=== PATIENT | female | born 1940 | race Caucasian/White ===

== ENCOUNTER → 2016-11-13 | Outpatient (CLI) | payer MEDICARE, BC ==
[~2016-11-13] MED LIST: ADVA250A INH; ADVAI100I PO; ALEV220T14 PO; AMLO5 PO; AMLO5TAB96 PO; APIX2.5T PO; ASPI81CH37 CHEW; CALC750C21 CHEW; CEPH-460 PO; CHOL5000 PO; COMBAER INH; CYMB30CA PO; ENOX30P SQ; GABA100C4 PO; GUAI600 PO; HYDR-3288 PO; IPRAAER INH; LACTTAB8 PO; LEVA500T20 PO; MUCI30TA2 PO; MUCI600T PO; NAPR220T95 PO; NORC7.5T PO; ROLACHW21 CHEW; VITA200017 PO; Z.0.COMMODE-3:1; Z.0.WALKERFRONT
[2016-11-13 10:14] LABS: BLOOD GAS BASE EXCESS -1.8 mmol/L (-2-2); BLOOD GAS CARBOXYHEMOGLOBIN 1.5 % (0-4); BLOOD GAS HCO3 22 mmol/L (22-26); BLOOD GAS O2 HGB SATURATION 95 % (90-100); BLOOD GAS OXYGEN CONTENT 21.2 Vol % (12.0-20.0); BLOOD GAS PCO2 38 mmHg (38-42); BLOOD GAS PO2 87 mmHg (61-120); CRITICAL VALUE NO; DRAW SITE RT RADIAL; FIO2 21 %; NUMBER OF ARTERIAL PUNCTURES 1; STAT NO; TEMP CORR TO 98.6; ULNAR PULSE PRESENT
--- NOTE | 2016-11-14 08:52 | RSPPFT ---
DATE OF PROCEDURE: 11/13/16 COMMENTS: Spirometry with FVC of 1.8 predicted 2.8, FEV1 of 1.1 predicted 1.9, FEV1/FVC ratio at 63% predicted 69%. There is no significant change post-bronchodilator acutely. Residual volume is increased to 3.2 predicted 2.1 implying air trapping. DLCO is 72% of predicted. IMPRESSION: On the basis of the above, patient has an obstructive lung defect and no response to acutely inhaled bronchodilator.
== END ==
LOC: HRSP 07:52
PROVIDERS: ATTEND Internal Medicine
DX: J40 Bronchitis, not specified as acute or chronic (principal); J47.9 Bronchiectasis, uncomplicated
CPT/HCPCS: 36600; 82805; 94060; 94726; 94729

== ENCOUNTER 2017-01-31 10:01 | Inpatient (IN) | payer MEDICARE, BC ==
[~2017-01-31] VITALS: Ht 166.4 cm; Wt 85.2 kg
[2017-02-04] MEDS ORDERED: ADVA250A INH (09:35)
[2017-02-04] MEDS ORDERED: IPRAAER INH (09:35)
[2017-02-04] MEDS ORDERED: MUCI600T PO (09:35)
[2017-02-04] MEDS ORDERED: CALC750C21 CHEW (09:35)
[2017-02-04] MEDS ORDERED: CHOL5000 PO (09:35)
[2017-02-04] MEDS ORDERED: GABA100C4 PO (09:35)
[2017-02-04] MEDS ORDERED: NAPR220T95 PO (09:35)
[2017-02-04] MEDS ORDERED: CYMB30CA PO (09:35)
[2017-02-04] MEDS ORDERED: AMLO5 PO (09:35)
[2017-02-25] VITALS (7 sets, daily range): BP systolic 107–148; BP diastolic 54–65; PULSE 73–81; RESP 15–17; TEMP 95.2–98.7; O2SAT 96–99
[2017-02-25] MEDS ORDERED: METOPROLOL TARTRATE 25 MG TAB PO PRN (05:45)
[2017-02-25] MEDS ORDERED: LACTATED RINGER'S 1000 ML IV PRN (05:45)
[2017-02-25] MEDS ORDERED: INSULIN HUMAN REGULAR 1,000 UNITS/10 ML VIAL SQ PRN (05:45)
[2017-02-25] MEDS ORDERED: DEXAMETHASONE SOD PHOS 20 MG/5 ML VIAL IV PRN (05:45)
[2017-02-25] MEDS ORDERED: TRANEXAMIC ACID INJ 1,135 MG in SODIUM CHLORIDE 0.9% INJ 100 ML IV SCH (05:45)
[2017-02-25] MEDS ORDERED: POVIDONE IODINE 5% (ANTISEPSIS KIT) 4 APPLICATIONS EACH NARE PRN (05:45)
[2017-02-25] MEDS ORDERED: SODIUM CHLORID 0.9% 500 ML IV PRN (05:45)
[2017-02-25] MEDS ORDERED: POVIDONE IODINE 7.5% SCRUB 118 ML BOTTLE TOPICAL SCH (05:45)
[2017-02-25] MEDS ORDERED: CHLORHEXIDINE GLUCONATE 4% SOLN 120 ML BTL TOPICAL SCH (05:45)
[2017-02-25] MEDS ORDERED: EXPAREL PERI-ARTICULAR INJECTION (TOTAL VOL. 60 ML) P-ARTICULR SCH ×2 (05:45)
[2017-02-25] MEDS ORDERED: CHLORHEXIDINE GLUCONATE 2 % 1 PACK (2 CLOTHS) TOPICAL PRN (05:45)
[2017-02-25] MEDS ORDERED: ceFAZolin 2 GM PREMIX 50 ML IV SCH (05:45)
[2017-02-25] MEDS ORDERED: TRANEXAMIC PERI-ARTICULAR 3,000 MG/NS 100 ML P-ARTICULR SCH ×2 (05:45)
[2017-02-25] MEDS ORDERED: VANCOMYCIN 1000 MG/NS 250 ML (for <70 kg) IV SCH ×2 (05:45)
[2017-02-25] MEDS ORDERED: ALEV220T14 PO (05:51)
[2017-02-25] MEDS ORDERED: MUCI30TA2 PO (05:51)
[2017-02-25] MEDS ORDERED: GENTAMICIN SULFATE 80 MG/2 ML VIAL ONE (06:10)
[2017-02-25] MEDS ORDERED: HYDR-3288 PO (06:36)
[2017-02-25] MEDS ORDERED: ENOX30P SQ (06:36)
[2017-02-25] MEDS ORDERED: ASPI81CH37 CHEW (06:37)
[2017-02-25] MEDS ORDERED: fentaNYL CITRATE 250 MCG/5 ML AMP ONE (06:39)
[2017-02-25] MEDS ORDERED: FAMOTIDINE 20 MG/2 ML VIAL ONE (06:39)
[2017-02-25] MEDS ORDERED: ACETAMINOPHEN 1000 MG/100 ML VIAL IV ONE (06:39)
[2017-02-25] MEDS ORDERED: MIDAZOLAM HCL 2 MG/2 ML VIAL ONE (06:39)
[2017-02-25] MEDS ORDERED: MORPHINE SULFATE 4 MG/ML INJ IV PUSH PRN (06:45)
[2017-02-25] MEDS ORDERED: ACETAMINOPHEN/HYDROcodone 325 MG/7.5 MG TAB PO PRN (06:45)
[2017-02-25] MEDS ORDERED: ZOLPIDEM TARTRATE 5 MG TAB PO PRN (06:45)
[2017-02-25] MEDS ORDERED: diphenhydrAMINE HCL 50 MG/ML VIAL IV PRN (06:45)
[2017-02-25] MEDS ORDERED: SODIUM CHLORIDE 0.9% FLUSH 5 ML FLUSH IVF PRN (06:45)
[2017-02-25] MEDS ORDERED: ONDANSETRON HCL 4 MG/2 ML VIAL IVP PRN (06:45)
[2017-02-25] MEDS ORDERED: BISACODYL 10 MG SUPP RECTAL PRN (06:45)
[2017-02-25] MEDS ORDERED: Post-op Orders (for Pharmacy) MISC XX ONE (06:45)
[2017-02-25] MEDS ORDERED: NALOXONE HCL 0.4 MG/ML AMP IV PRN (06:45)
[2017-02-25] MEDS ORDERED: DO NOT ADM ANY ANTICOAGULANT DRUGS PRN (08:49)
[2017-02-25] MEDS ORDERED: *morphine SULFATE 8 MG/ML PERIprocedure ONLY ONE ×2 (08:57→09:08)
[2017-02-25] MEDS: GABAPENTIN 100 MG CAP PO SCH ×2 (09:00→19:59)
[2017-02-25] MEDS: BUDESONIDE-FORMOTEROL 160/4.5 MCG INHALER INH SCH ×2 (09:00→19:59)
[2017-02-25] MEDS: SODIUM CHLORIDE 0.9% FLUSH 5 ML FLUSH IVF SCH ×2 (09:00→20:00)
[2017-02-25] MEDS: amLODIPine BESYLATE 5 MG TAB PO SCH (09:00)
[2017-02-25] MEDS ORDERED: *HYDROmorphone PF 1 MG VIAL PERIprocedural Use ONLY ONE ×2 (09:16→09:35)
[2017-02-25] MEDS ORDERED: *RESP: ALBUTEROL 2.5 MG/3 ML NEB (PRN) PERIprocedural Use ONLY NEB ONE (09:45)
[2017-02-25] MEDS: SODIUM CHLOR 0.9% 1000 ML INJ 1,000 ML IV SCH ×3 (09:55→23:21)
--- NOTE | 2017-02-25 10:01 | RADRPT ---
EXAM DATE/TIME: 02/25/2017 09:11 [facility] COMPARISON: No previous studies available for comparison. INDICATIONS : Post op left hip surgery. MEDICAL HISTORY : None. SURGICAL HISTORY : right hip surgery 03/2016 ENCOUNTER: Initial ACUITY: 1 day PAIN SCORE: 10/10 LOCATION: Left hip and pelvis FINDINGS: The patient is status post a total hip arthroplasty with a bipolar prosthesis. Prosthesis is well-sea lexie. Alignment is anatomic. A fracture is not appreciated. Previous right hip arthroplasty and spina l fusion is noted. CONCLUSION: Anatomic alignment. Wilfredo James MD FACR on February 25, 2017 at 9:58 Board Certified Radiologist. This report was verified electronically.
[2017-02-25] MEDS ORDERED: LACTATED RINGER'S 1000 ML INJ 1,000 ML IV ONE (12:00)
[2017-02-25] MEDS ORDERED: PROPOFOL 200 MG/20 ML AMP IV ONE (12:00)
[2017-02-25] MEDS ORDERED: NEOSTIGMINE 3 MG/3 ML SYR IV ONE (12:00)
[2017-02-25] MEDS ORDERED: ONDANSETRON HCL 4 MG/2 ML VIAL IV PUSH ONE (12:00)
--- NOTE | 2017-02-25 12:12 | MP ---
cc: MICHEAL BRONSON M.D. DATE OF SURGERY: 02/25/2017 PREOPERATIVE DIAGNOSIS Left hip osteoarthritis. POSTOPERATIVE DIAGNOSIS Left hip osteoarthritis. PROCEDURE Left total hip arthroplasty. SURGEON Dr. Micheal Bronson. [employer] [facility] ANESTHESIA General. ESTIMATED BLOOD LOSS 100 ccs. COMPLICATIONS None. IMPLANTS USED DePuy Corail size 14 Press-Fit high offset femoral stem, size 52 solid pinnacle Gription cup, size 36 mm highly cross-linked polyethylene neutral liner, size 36 mm cobalt chrome head, +1 neck. JUSTIFICATION This patient is a 76-year-old female with history of severe end-stage osteoarthritis involving the left hip. She has severe disabling pain with standing, walking, ambulation, weight-bear Activities, even severe pain at rest. She has failed greater than 3 months of nonoperative conservative treatment to include medications, therapy, ambulatory assisted aids, home exercise program, activity modification. The patient is not overweight. X-ray of left hip revealed severe end-stage osteoarthritis with [id number] joint space narrowing, subchondral sclerosis, subchondral cyst, osteophyte formation and subluxation. The patient was counseled as to the risks, benefits and alternatives to a total hip arthroplasty. The risks were discussed which include but not limited to anesthesia, bleeding, infection, damage to nerves, blood vessels, pain, stiffness, failure of components, blood clots, pulmonary embolism, leg length discrepancy, dislocation, pulmonary embolism and even . The patient's pain is severe, she favored the benefits over the risks and did wish to proceed with surgery. PROCEDURE IN DETAIL A written consent was obtained. The patient was identified by name, taken to the operating room and placed supine on the operating table. General anesthesia was administered as well as 2 grams of IV Ancef and 1 gram of IV vancomycin. The left and right feet were placed in padded traction boots. The left hip and left lower extremity was then prepped and draped using isopropyl alcohol, Hibiclens solution and Chloraprep solution. After time-out was performed a longitudinal incision was made over the anterolateral aspect of the left hip. The fascial layer was incised. Dissection was carried over tensor fascia arley beneath rectus femoris allowing exposure of the anterior capsule. Capsulotomy incision was performed. An oscillating saw was used to perform a femoral neck cut. The osteophytic femoral head and neck component was removed. A 10 blade scalpel was used to excise the labrum. Sequential reaming began at size 45 and was carried through to size 52. Subsequently the Gription size 52 cup was implanted approximately 45 degrees of abduction and 10 degrees of anteversion. There is good purchase and fixation after insertion of the cup. A screw hole eliminator was placed followed by the neutral polyethylene liner. The liner was impacted in place and tested for stability. Attention was turned to the femur where the leg was externally rotated, extended and adducted, the capsule was released on the undersurface of the greater trochanter to allow for elevation and lateralization of the femur. Box cutting osteotome was used to gain entrance into the intramedullary canal of the femur. This was followed by canal finder and sequential broaching up to size 14. Trial head and neck combinations were evaluated and final components implanted, with the current implanted components, the leg could achieve external rotation of 70 degrees and extension all the way down to the ground without evidence of anterior instability. Fluoroscopic imaging showed appropriate implantation of components. The surgical wounds were thoroughly irrigated with sterile saline pulse lavage antibiotic impregnated solution. The fascia layer was closed with #1 Vicryl suture. The subcutaneous layer closed with 2-0 Vicryl suture, and skin was closed with Dermabond. Sterile dressing was applied. The patient tolerated the procedure well and had no intraoperative complications noted. Virgilio Blackman, physician school psychologist assistant certified was present during the entire procedure to include patient positioning, the procedure itself. The medical necessity of physician school psychologist assistant was indicated in this case due to the complexity of the procedure, he assisted with appropriate manipulation of the leg and also retraction of muscle, tendon, bone, neurovascular structures. He assisted with both preparation of bone and implantation of the prosthetic replacement. MD BUZZ Colón/JIM /8:38 AM /11:52 AM
--- NOTE | 2017-02-25 12:51 | RADRPT ---
EXAM DATE/TIME: 02/25/2017 07:22 [facility] COMPARISON: No previous studies available for comparison. INDICATIONS : Left anterior hip replacement. MEDICAL HISTORY : Hypertension. Chronic obstructive pulmonary disease. Arthritis. Asthma. SURGICAL HISTORY : Hysterectomy. ENCOUNTER: Subsequent ACUITY: 1 day PAIN SCORE: Non-responsive. LOCATION: Left hip. FINDINGS: The patient is status post a total hip arthroplasty with a bipolar prosthesis. Prosthesis is well-sea lexie. Alignment is anatomic. A fracture is not appreciated. CONCLUSION: Anatomic alignment. Wilfredo James MD FACR Board Certified Radiologist. This report was verified electronically.
--- NOTE | 2017-02-25 13:37 | PD.CONS ---
HPI Service [facility] Consult Requested By Dr. Daniels Reason for Consult Medical management Primary Care Physician Diane Chand MD Diagnoses: History of Present Illness Written by IGNACIO Bernardo acting as scribe for [Antony] on 02/25/17 at 12 :45. 76 y/o female with a history of htn and osteoarthritis underwent a left total hip arthroplasty with Dr. Daniels on 02/25/17. [facility] was consulted for medical management of chronic medical conditions. Patient is seen and examined while sitting up in the chair. She complains of left hip pain, 6/10, sore and tender to touch, aggravated by movement, but the pain medication does help. No associated symptoms. She denies any chest pain, sob, fever or chills. Review of Systems Constitutional: DENIES: Fever, Chills Respiratory: DENIES: Cough, Shortness of breath Cardiovascular: DENIES: Chest pain, Lower Extremity Edema Gastrointestinal: DENIES: Abdominal pain, Constipation, Diarrhea, Nausea, Vomiting Genitourinary: DENIES: Hematuria, Dysuria Musculoskeletal: COMPLAINS OF: Joint pain, DENIES: Back pain, Neck pain Integumentary: DENIES: Rash Neurologic: DENIES: Headache Past Family Social History Allergies: Coded Allergies: No Known Allergies (Unverified , 02/25/17) Past Medical History HTN Osteoarthritis Melanoma Past Surgical History Left elbow repair Right total knee replacement lumbar spine surgery hysterectomy appendectomy Reported Medications Reported Meds & Active Scripts Active Aspirin Low Dose (Aspirin) 81 Mg Chew 81 Mg CHEW BID Lovenox Inj (Enoxaparin Sodium) 30 Mg/0.3 Ml Syr 30 Mg SQ DAILY [place] (Hydrocodone-Acetaminophen) 7.5-325 mg Tab 1-2 Tab PO Q6H PRN Reported Aleve Arthritis (Naproxen Sodium) 220 Mg Tab 440 Mg PO BID Mucinex DM (Dextromethorphan-Guaifenesin) 30-600 Mg Tab 1 Tab PO BID PRN Combivent Respimat Inh (Ipratropium-Albuterol Inh) 20-100 Retirement/Act Aero 1 Puff INH QID PRN Gabapentin 100 Mg Cap 100 Mg PO BID Advair Diskus Inh (Fluticasone-Salmeterol Inh) 250-50 Mcg/Blist Aer 1 Puff INH BID Rinse mouth after use. Cymbalta DR (Duloxetine HCl) 30 Mg Capdr 30 Mg PO HS Vitamin D3 (Cholecalciferol) 5,000 Unit Cap 5,000 Units PO DAILY Tums E-X 750 (Calcium Carbonate (Antacid)) 750 Mg Chew 750 Mg CHEW PRN Norvasc (Amlodipine Besylate) 5 Mg Tab 5 Mg PO DAILY Active Ordered Medications Current Medications Medications (Trade) Dose Ordered Sig/Clari Route Start Time Stop Time Status Last Admin (Betadine 7.5% Scrub) 1 applic ONCE TOPICAL 02/25/17 05:45 02/28/17 05:44 Chlorhexidine Gluconate 1 applic 1 applic ONCE TOPICAL 02/25/17 05:45 02/28/17 05:44 Tranexamic Acid 1135 mg/Sodium Chloride 111.35 ml @ 200 mls/ hr ONCE IV 02/25/17 05:45 02/25/17 16:00 02/25/17 07:11 Bupivacaine Liposome 20 ml/ Sodium Chloride 60 ml @ 120 mls/hr ONCE P-ARTICULR 02/25/17 05:45 02/25/17 16:00 02/25/17 07:58 Tranexamic Acid 3000 mg/Sodium Chloride 130 ml @ 260 mls/hr ONCE P-ARTICULR 02/25/17 05:45 02/25/17 16:00 02/25/17 07:58 Lactated Ringer's 1,000 ml @ 30 mls/hr Q24H PRN IV 02/25/17 05:45 02/28/17 05:44 02/25/17 05:45 (NS 500 ml Inj) 500 ml @ 30 mls/hr [id number] PRN IV 02/25/17 05:45 02/28/17 05:44 (Norvasc) 5 mg DAILY PO 02/25/17 09:00 (Cymbalta Dr) 30 mg HS PO 02/25/17 21:00 (Neurontin) 100 mg BID PO 02/25/17 09:00 Budesonide/ Formoterol Fumarate 2 puff 2 puff BID INH 02/25/17 09:00 (NS 1000 ml Inj) 1,000 ml @ 100 mls/hr Q10H IV 02/25/17 06:33 02/25/17 09:55 (NS Flush) 2 ml UNSCH PRN IVF 02/25/17 06:45 IV Flush 2 ml 2 ml BID IVF 02/25/17 09:00 (Ancef Inj/NS Inj) 100 ml @ 200 mls/hr Q6H IV 02/25/17 12:00 02/26/17 00:29 (Lovenox Inj) 30 mg Q24H SQ 02/25/17 21:00 (Morphine Inj) 3 mg Q3H PRN IV PUSH 02/25/17 06:45 ([place] 7.5-325 Mg) 1 tab Q4H PRN PO 02/25/17 06:45 ([place] 7.5-325 Mg) 2 tab Q4H PRN PO 02/25/17 06:45 (Theragran M Tab) 1 tab BID PO 02/26/17 21:00 04/27/17 20:59 (Zofran Inj) 4 mg Q6H PRN IVP 02/25/17 06:45 (Colace) 100 mg BID PO 02/26/17 21:00 (Ambien) 5 mg HS PRN PO 02/25/17 06:45 (Dulcolax Supp) 10 mg DAILY PRN RECTAL 02/25/17 06:45 (Milk Of Magnesia Liq) 30 ml DAILY PRN PO 02/25/17 06:45 (Narcan Inj) 0.4 mg UNSCH PRN IV 02/25/17 06:45 (Benadryl Inj) 25 mg Q6H PRN IV 02/25/17 06:45 Miscellaneous Information ALL NURSING DEPARTME... UNSCH PRN .XX 02/25/17 08:49 02/26/17 08:48 Family History mom: heart disease, chf Siblings: heart disease, and melanoma Social History Patient denies any tobacco, alcohol, or illicit drug use. Physical Exam Vital Signs Vital Signs Date Time Temp Pulse Resp B/P Pulse Ox O2 Delivery O2 Flow Rate FiO2 02/25/17 11:48 95.6 73 16 110/57 99 02/25/17 10:32 95.2 81 16 107/56 99 02/25/17 10:15 80 14 120/56 96 Nasal Cannula 2 02/25/17 10:00 97.9 74 14 108/55 96 Nasal Cannula 2 02/25/17 09:45 69 14 114/59 98 Aerosol Mask 6/12/17 09:30 75 16 115/57 99 Nasal Cannula 3 02/25/17 09:15 78 16 116/57 99 Nasal Cannula 3 02/25/17 09:00 77 14 145/63 100 Nasal Cannula 3 02/25/17 08:52 97.3 73 14 166/72 99 Nasal Cannula 3 02/25/17 05:52 98.7 74 16 148/65 97 Physical Exam GENERAL: This is a well-nourished, well-developed patient, in no apparent distress. SKIN: No rashes, ecchymoses or lesions. Cool and dry. HEAD: Atraumatic. Normocephalic. No temporal or scalp tenderness. EYES: Pupils equal round and reactive. Extraocular motions intact. ENT: Nose without bleeding, purulent drainage or septal hematoma. Airway patent. NECK: Trachea midline. No JVD or lymphadenopathy. CARDIOVASCULAR: Regular rate and rhythm without murmurs, gallops, or rubs. RESPIRATORY: Clear to auscultation. Breath sounds equal bilaterally. No wheezes , rales, or rhonchi. GASTROINTESTINAL: Abdomen soft, non-tender, nondistended. No hepato-splenomegaly , or palpable masses. No guarding. MUSCULOSKELETAL: Extremities without clubbing, cyanosis, or edema. left hip tenderness. No calf pain. NEUROLOGICAL: Awake and alert. Motor and sensory grossly within normal limits. Normal speech. Laboratory Laboratory Tests Test 02/25/17 05:57 Blood Type O POSITIVE Antibody Screen NEGATIVE Imaging Last Impressions Hip and Pelvis X-Ray 02/25/17 0633 Signed Impressions: Service Date/Time: Saturday, February 25, 2017 09:11 - CONCLUSION: Anatomic alignment. Wilfredo James MD FACR Hip X-Ray 02/25/17 0000 Signed Impressions: Service Date/Time: Saturday, February 25, 2017 07:22 - CONCLUSION: Anatomic alignment. Wilfredo James MD Assessment and Plan Problem List: (1) Primary localized osteoarthrosis, pelvic region and thigh ICD Code: M16.10 Status: Acute (2) HTN (hypertension) ICD Code: I10 Status: Acute Assessment and Plan 76 y/o female with a history of htn and osteoarthritis underwent a left total hip arthroplasty with Dr. Daniels on 02/25/17. [facility] was consulted for medical management of chronic medical conditions. HTN, chronic currently controlled -Cont home Norvasc -Vasotec if needed Osteoarthritis, s/p left total hip arthroplasty on 02/25/17 -Followed by Dr. Daniels -Pain management with [place] PO and Morphine IV -Cont home gabapentin DVT prophylaxis: Lovenox This note was transcribed by scribe [Maryann Erazo]. I, Dr. Jeronimo Hardy personally performed the history, physical exam, and medical decision making; and confirmed the accuracy of the information in the transcribed note. Authenticated by Dr. Jeronimo Hardy on 02/25/17 at 15:13. Discussed Condition With Patient and patient's Maryann Erazo Feb 25, 2017 1:37 pm Jeronimo Hardy MD Feb 25, 2017 3:14 pm
[2017-02-25] MEDS: ACETAMINOPHEN/HYDROcodone 325 MG/7.5 MG TAB PO PRN ×2 (15:59→20:00)
[2017-02-25] MEDS: DULoxetine HCl DR 30 MG CAP PO SCH (19:59)
[2017-02-25] MEDS: ENOXAPARIN SODIUM 30 MG/0.3 ML SYRINGE SQ SCH (21:20)
[2017-02-26] MEDS: ACETAMINOPHEN/HYDROcodone 325 MG/7.5 MG TAB PO PRN ×5 (00:04→20:58)
[2017-02-26 04:00] VITALS: BP 124/61; PULSE 76; RESP 17; TEMP 98.7; O2SAT 96
[2017-02-26 04:39] LABS: HEMATOCRIT 29.6 % (35.0-46.0); MEAN CELL VOLUME 88.8 FL (80.0-100.0); MEAN CORPUSCULAR HEMOGLOBIN 30.3 PG (27.0-34.0); MEAN CORPUSCULAR HGB CONC 34.1 % (32.0-36.0); PLATELET COUNT 170 TH/MM3 (150-450); RED BLOOD COUNT 3.34 MIL/MM3 (4.00-5.30); RED CELL DISTRIBUTION WIDTH 14.3 % (11.6-17.2); REVIEW FLAG FINAL; WHITE BLOOD COUNT 11.5 TH/MM3 (4.0-11.0)
[2017-02-26 04:58] LABS: BICARBONATE 25.9 MEQ/L (21.0-32.0); POTASSIUM 4.7 MEQ/L (3.5-5.1)
[2017-02-26 07:32] VITALS: BP 118/61; PULSE 80; RESP 16; TEMP 98.3; O2SAT 97
--- NOTE | 2017-02-26 08:40 | PD.ORT.PN ---
Subjective Post Op Day #: 1 Subjective Remarks doing well. pain tolerable. Objective Vitals Vital Signs Date Time Temp Pulse Resp B/P Pulse Ox O2 Delivery O2 Flow Rate FiO2 02/26/17 04:00 98.7 76 17 124/61 96 02/25/17 23:59 97.3 79 15 110/65 96 02/25/17 20:35 98 21 02/25/17 19:00 97.9 77 17 121/56 98 02/25/17 15:41 95.5 77 16 114/54 99 02/25/17 11:48 95.6 73 16 110/57 99 02/25/17 10:32 95.2 81 16 107/56 99 02/25/17 10:15 80 14 120/56 96 Nasal Cannula 2 02/25/17 10:00 97.9 74 14 108/55 96 Nasal Cannula 2 02/25/17 09:45 69 14 114/59 98 Aerosol Mask 02/25/17 09:30 75 16 115/57 99 Nasal Cannula 3 02/25/17 09:15 78 16 116/57 99 Nasal Cannula 3 02/25/17 09:00 77 14 145/63 100 Nasal Cannula 3 02/25/17 08:52 97.3 73 14 166/72 99 Nasal Cannula 3 I/O 02/25/17 02/25/17 02/25/17 02/26/17 02/26/17 02/26/17 07:00 15:00 23:00 07:00 15:00 23:00 Intake Total 2301 ml 732 ml 1440 ml Output Total 1275 ml 480 ml 240 ml Balance 1026 ml 252 ml 1200 ml Intake Oral 480 ml 480 ml 480 ml IV Total 721 ml 252 ml 960 ml Other 1100 ml Output Urine Total 1175 ml 480 ml 240 ml Estimated Blood Loss 100 ml # Voids 0 # Bowel Movements 0 0 0 Result Diagram: 02/26/17 0405 02/26/17404 Objective Remarks in bed, nad, eating dressing c/d/i thigh soft neg homans nvi Assessment & Plan Ortho Post Op Day #: 1 Problem List: Assessment and Plan s/p L LOUIE anterior approach wbat daily dressing changes lovenox d/c planning to snf 3008 signed rx in chart f/up dr. cifuentes 2 weeks Delgado Blackman Feb 26, 2017 08:40
--- NOTE | 2017-02-26 08:41 | HHI.DCPOC ---
Discharge Care Plan Diagnosis: (1) Primary localized osteoarthrosis, pelvic region and thigh Your Health Problems Are: Difficulty with ADL Goals to Promote Your Health * To prevent worsening of your condition and complications * To maintain your health at the optimal level Directions to Meet Your Goals Take your medications as prescribed Follow your dietary instruction Follow activity as directed Keep your appointments as scheduled Take your immunizations and boosters as scheduled If your symptoms worsen call your PCP, if no PCP go to Urgent Care Center or Emergency Room Smoking is Dangerous to Your Health. Avoid second hand smoke Call the 24-hour hour crisis hotline for domestic abuse at Delgado Blackman Feb 26, 2017 08:41
[2017-02-26] MEDS: SODIUM CHLORIDE 0.9% FLUSH 5 ML FLUSH IVF SCH ×2 (09:00→20:59)
[2017-02-26] MEDS: BUDESONIDE-FORMOTEROL 160/4.5 MCG INHALER INH SCH ×2 (09:39→20:59)
[2017-02-26] MEDS: GABAPENTIN 100 MG CAP PO SCH ×2 (09:40→20:59)
[2017-02-26] MEDS: amLODIPine BESYLATE 5 MG TAB PO SCH (09:40)
[2017-02-26] MEDS: MAGNESIUM HYDROXIDE SUSP 30 ML CUP PO PRN (09:42)
--- NOTE | 2017-02-26 10:08 | HHI.PR ---
Subjective Remarks Follow up left hip replacement, POD #2. Patient laying in bed. States her pain is a 6/10, and she just received pain medication. Denies any chest pain, sob, fever or chills. She states she has chosen to go to [facility] for rehab. No BM yet, milk of mag was given this am. Objective Vitals Vital Signs Date Time Temp Pulse Resp B/P Pulse Ox O2 Delivery O2 Flow Rate FiO2 02/26/17 07:32 98.3 80 16 118/61 97 02/26/17 04:00 98.7 76 17 124/61 96 02/25/17 23:59 97.3 79 15 110/65 96 02/25/17 20:35 98 21 02/25/17 19:00 97.9 77 17 121/56 98 02/25/17 15:41 95.5 77 16 114/54 99 02/25/17 11:48 95.6 73 16 110/57 99 02/25/17 10:32 95.2 81 16 107/56 99 02/25/17 10:15 80 14 120/56 96 Nasal Cannula 2 I/O 02/25/17 02/25/17 02/25/17 02/26/17 02/26/17 02/26/17 07:00 15:00 23:00 07:00 15:00 23:00 Intake Total 2301 ml 732 ml 1440 ml Output Total 1275 ml 480 ml 240 ml Balance 1026 ml 252 ml 1200 ml Intake Oral 480 ml 480 ml 480 ml IV Total 721 ml 252 ml 960 ml Other 1100 ml Output Urine Total 1175 ml 480 ml 240 ml Estimated Blood Loss 100 ml # Voids 0 # Bowel Movements 0 0 0 Result Diagram: 02/26/17 0405 02/26/17 0405 Objective Remarks GENERAL: Resting, in NAD SKIN: Warm and dry. HEAD: Atraumatic. Normocephalic. NECK: Trachea midline. No JVD. CARDIOVASCULAR: Regular rate and rhythm. RESPIRATORY: No accessory muscle use. Clear to auscultation. Breath sounds equal bilaterally. GASTROINTESTINAL: Abdomen soft, non-tender, nondistended. Hepatic and splenic margins not palpable. MUSCULOSKELETAL:Left hip tenderness. No obvious deformities. NEUROLOGICAL: Awake and alert. No obvious cranial nerve deficits. Motor grossly within normal limits.Normal speech. PSYCHIATRIC: Appropriate mood and affect; insight and judgment normal. Medications and IVs Current Medications Medications (Trade) Dose Ordered Sig/Clari Route Start Time Stop Time Status Last Admin (Betadine 7.5% Scrub) 1 applic ONCE TOPICAL 02/25/17 05:45 02/28/17 05:44 Chlorhexidine Gluconate 1 applic 1 applic ONCE TOPICAL 02/25/17 05:45 02/28/17 05:44 Lactated Ringer's 1,000 ml @ 30 mls/hr Q24H PRN IV 02/25/17 05:45 02/28/17 05:44 02/25/17 05:45 (NS 500 ml Inj) 500 ml @ 30 mls/hr [id number] PRN IV 02/25/17 05:45 02/28/17 05:44 (Norvasc) 5 mg DAILY PO 02/25/17 09:00 02/26/17 09:40 (Cymbalta Dr) 30 mg HS PO 02/25/17 21:00 02/25/17 19:59 (Neurontin) 100 mg BID PO 02/25/17 09:00 02/26/17 09:40 Budesonide/ Formoterol Fumarate 2 puff 2 puff BID INH 02/25/17 09:00 02/26/17 09:39 (NS 1000 ml Inj) 1,000 ml @ 100 mls/hr Q10H IV 02/25/17 06:33 02/25/17 23:21 (NS Flush) 2 ml UNSCH PRN IVF 02/25/17 06:45 (NS Flush) 2 ml BID IVF 02/25/17 09:00 02/26/17 09:00 (Lovenox Inj) 30 mg Q24H SQ 02/25/17 21:00 02/25/17 21:20 (Morphine Inj) 3 mg Q3H PRN IV PUSH 02/25/17 06:45 ([place] 7.5-325 Mg) 1 tab Q4H PRN PO 02/25/17 06:45 02/26/17 09:42 ([place] 7.5-325 Mg) 2 tab Q4H PRN PO 02/25/17 06:45 (Theragran M Tab) 1 tab BID PO 02/26/17 21:00 04/27/17 20:59 (Zofran Inj) 4 mg Q6H PRN IVP 02/25/17 06:45 (Colace) 100 mg BID PO 02/26/17 21:00 (Ambien) 5 mg HS PRN PO 02/25/17 06:45 (Dulcolax Supp) 10 mg DAILY PRN RECTAL 02/25/17 06:45 (Milk Of Magnesia Liq) 30 ml DAILY PRN PO 02/25/17 06:45 02/26/17 09:42 (Narcan Inj) 0.4 mg UNSCH PRN IV 02/25/17 06:45 (Benadryl Inj) 25 mg Q6H PRN IV 02/25/17 06:45 A/P Problem List: (1) Primary localized osteoarthrosis, pelvic region and thigh ICD Code: M16.10 Status: Acute (2) HTN (hypertension) ICD Code: I10 Status: Acute Assessment and Plan 76 y/o female with a history of htn and osteoarthritis underwent a left total hip arthroplasty with Dr. Daniels on 02/25/17. [facility] was consulted for medical management of chronic medical conditions. HTN, chronic currently controlled -Cont home Norvasc -Vasotec if needed Osteoarthritis, s/p left total hip arthroplasty on 02/25/17 -Followed by Dr. Daniels -Pain management with [place] PO and Morphine IV per ortho -Cont home gabapentin DVT prophylaxis: Lovenox Discharge Planning 1-2 days to [facility] for rehab Maryann Erazo Feb 26, 2017 10:08
[2017-02-26 10:10] VITALS: O2SAT 92
[2017-02-26] MEDS: SODIUM CHLOR 0.9% 1000 ML INJ 1,000 ML IV SCH ×2 (11:35→20:59)
[2017-02-26 11:49] VITALS: BP 115/53; PULSE 79; RESP 16; TEMP 98; O2SAT 97
[2017-02-26 16:04] VITALS: BP 112/57; PULSE 83; RESP 16; TEMP 98.4; O2SAT 96
[2017-02-26 20:00] VITALS: BP 120/65; PULSE 89; RESP 18; TEMP 98.7; O2SAT 95
[2017-02-26] MEDS ORDERED: CALCIUM CARBONATE 500 MG CHEWABLE TAB CHEW ONE (20:00)
[2017-02-26] MEDS: DOCUSATE SODIUM 100 MG CAP PO SCH (20:58)
[2017-02-26] MEDS: DULoxetine HCl DR 30 MG CAP PO SCH (20:58)
[2017-02-26] MEDS: MULTIVITAMINS/MINERALS THERAPEUTIC TAB PO SCH (20:58)
[2017-02-26] MEDS: ENOXAPARIN SODIUM 30 MG/0.3 ML SYRINGE SQ SCH (20:58)
[2017-02-27] VITALS: BP 135/60; PULSE 83; RESP 16; TEMP 98.9; O2SAT 95
[2017-02-27 04:00] VITALS: BP_SYST 128; BP_SYST 130; BP_DIAS 69; BP_DIAS 73; PULSE 83; PULSE 86; RESP 16; TEMP 97.2; TEMP 98.1; O2SAT 93; O2SAT 98
[2017-02-27] MEDS: ACETAMINOPHEN/HYDROcodone 325 MG/7.5 MG TAB PO PRN ×3 (05:03→18:23)
[2017-02-27 07:31] LABS: MEAN CELL VOLUME 89.5 FL (80.0-100.0); MEAN CORPUSCULAR HEMOGLOBIN 29.3 PG (27.0-34.0); MEAN CORPUSCULAR HGB CONC 32.8 % (32.0-36.0); PLATELET COUNT 146 TH/MM3 (150-450); RED BLOOD COUNT 3.35 MIL/MM3 (4.00-5.30); RED CELL DISTRIBUTION WIDTH 14.5 % (11.6-17.2); REVIEW FLAG FINAL; WHITE BLOOD COUNT 11.2 TH/MM3 (4.0-11.0)
--- NOTE | 2017-02-27 07:48 | PD.ORT.PN ---
Subjective Post Op Day #: 2 Subjective Remarks doing well. pain tolerable. walked a lot in PT and leg is sore. Objective Vitals Vital Signs Date Time Temp Pulse Resp B/P Pulse Ox O2 Delivery O2 Flow Rate FiO2 02/27/17 04:00 98.1 86 16 128/69 93 02/27/17 00:00 98.9 83 16 135/60 95 02/26/17 20:00 98.7 89 18 120/65 95 02/26/17 16:04 98.4 83 16 112/57 96 02/26/17 11:49 98.0 79 16 115/53 97 02/26/17 10:10 92 21 I/O 02/26/17 02/26/17 02/26/17 02/27/17 02/27/17 02/27/17 07:00 15:00 23:00 07:00 15:00 23:00 Intake Total 1440 ml 960 ml 780 ml 240 ml Output Total 240 ml Balance 1200 ml 960 ml 780 ml 240 ml Intake Oral 480 ml 960 ml 780 ml 240 ml IV Total 960 ml Output Urine Total 240 ml # Voids 2 1 1 # Bowel Movements 0 0 0 0 Result Diagram: 02/27/17 0635 02/26/17 0405 Objective Remarks in bed, nad incision no erythema, no drainage thigh soft neg homans nvi Assessment & Plan Ortho Post Op Day #: 2 Problem List: Assessment and Plan s/p L LOUIE anterior approach wbat daily dressing changes lovenox d/c planning to snf - likely 3007 signed rx in chart f/up dr. cifuentes 2 weeks Delgado Blackman Feb 27, 2017 07:48
[2017-02-27 08:00] VITALS: BP 136/62; PULSE 89; RESP 14; TEMP 97.7; O2SAT 93
[2017-02-27] MEDS: SODIUM CHLOR 0.9% 1000 ML INJ 1,000 ML IV SCH ×3 (08:33→20:41)
[2017-02-27] MEDS: DOCUSATE SODIUM 100 MG CAP PO SCH ×2 (08:41→20:39)
[2017-02-27] MEDS: amLODIPine BESYLATE 5 MG TAB PO SCH (08:41)
[2017-02-27] MEDS: GABAPENTIN 100 MG CAP PO SCH ×2 (08:41→20:39)
[2017-02-27] MEDS: MULTIVITAMINS/MINERALS THERAPEUTIC TAB PO SCH ×2 (08:41→20:40)
[2017-02-27] MEDS: MAGNESIUM HYDROXIDE SUSP 30 ML CUP PO PRN ×2 (08:42→20:39)
[2017-02-27] MEDS: BUDESONIDE-FORMOTEROL 160/4.5 MCG INHALER INH SCH ×2 (08:58→20:40)
[2017-02-27] MEDS: SODIUM CHLORIDE 0.9% FLUSH 5 ML FLUSH IVF SCH ×2 (09:00→20:40)
[2017-02-27 12:00] VITALS: BP 112/54; PULSE 86; RESP 14; TEMP 98.6; O2SAT 95
--- NOTE | 2017-02-27 14:16 | HHI.PR ---
Subjective Remarks Difficulty and pain with ambulation. We discussed the option for [facility]dc facility. Patient is interested in this option rather than a return to home. Hemoglobin is 9.8 today. Objective Vital Signs Date Time Temp Pulse Resp B/P Pulse Ox O2 Delivery O2 Flow Rate FiO2 02/27/17 08:00 97.7 89 14 136/62 93 02/27/17 04:00 98.1 86 16 128/69 93 02/27/17 00:00 98.9 83 16 135/60 95 02/26/17 20:00 98.7 89 18 120/65 95 02/26/17 16:04 98.4 83 16 112/57 96 I/O 02/26/17 02/26/17 02/26/17 02/27/17 02/27/17 02/27/17 07:00 15:00 23:00 07:00 15:00 23:00 Intake Total 1440 ml 960 ml 780 ml 240 ml Output Total 240 ml Balance 1200 ml 960 ml 780 ml 240 ml Intake Oral 480 ml 960 ml 780 ml 240 ml IV Total 960 ml Output Urine Total 240 ml # Voids 2 1 1 # Bowel Movements 0 0 0 0 Result Diagram: 02/27/17 0635 02/26/17 0405 Objective Remarks GENERAL: NAD, A&Ox3 HEAD: Normocephalic. NECK: Supple, trachea midline. No lymphadenopathy. EYES: No scleral icterus. No injection or drainage. CARDIOVASCULAR: Regular rate and rhythm without murmurs, gallops, or rubs. RESPIRATORY: Breath sounds equal bilaterally. No accessory muscle use. GASTROINTESTINAL: Abdomen soft, non-tender, nondistended. MUSCULOSKELETAL: No cyanosis, or edema. Limited range of motion of left hip, left hip bandage. SKIN: Warm and dry. NEURO: No focal neurological deficitis. Medications and IVs Administered Medications Medications (Trade) Dose Ordered Sig/Clari Route PRN Reason Start Time Stop Time Status Last Admin Dose Admin Lactated Ringer's (Lr 1000 ml Inj) 1,000 ml @ 30 mls/hr Q24H PRN IV SEE LABEL COMMENTS 02/25/17 05:45 02/28/17 05:44 02/25/17 05:45 Amlodipine Besylate (Norvasc) 5 mg DAILY PO 02/25/17 09:00 02/27/17 08:41 Duloxetine HCl (Cymbalta Dr) 30 mg HS PO 02/25/17 21:00 02/26/17 20:58 Gabapentin (Neurontin) 100 mg BID PO 02/25/17 09:00 02/27/17 08:41 Budesonide/ Formoterol Fumarate 2 puff 2 puff BID INH 02/25/17 09:00 02/27/17 08:58 Sodium Chloride (NS 1000 ml Inj) 1,000 ml @ 100 mls/hr Q10H IV 02/25/17 06:33 02/25/17 23:21 IV Flush (NS Flush) 2 ml BID IVF 02/25/17 09:00 02/27/17 09:00 Enoxaparin Sodium (Lovenox Inj) 30 mg Q24H SQ 02/25/17 21:00 02/26/17 20:58 Acetaminophen/ Hydrocodone Bitart ([place] 7.5-325 Mg) 1 tab Q4H PRN PO PAIN LESS THAN 5 ON SCALE 02/25/17 06:45 02/27/17 13:59 Multivitamins/ Minerals Therapeutic (Theragran M Tab) 1 tab BID PO 02/26/17 21:00 04/27/17 20:59 02/27/17 08:41 Docusate Sodium (Colace) 100 mg BID PO 02/26/17 21:00 02/27/17 08:41 Magnesium Hydroxide (Milk Of Magnesia Liq) 30 ml DAILY PRN PO CONSTIPATION 02/25/17 06:45 02/27/17 08:42 A/P Problem List: (1) HTN (hypertension) ICD Code: I10 (2) Primary localized osteoarthrosis, pelvic region and thigh ICD Code: M16.10 (3) Primary localized osteoarthrosis, pelvic region and thigh ICD Code: M16.10 Assessment and Plan Assessment and Plan 76 y/o female with a history of htn and osteoarthritis underwent a left total hip arthroplasty with Dr. Daniels on 02/25/17. HTN Norvasc PRN Enalapril Osteoarthritis s/p left total hip arthroplasty on 02/25/17 Ortho following PRN pain treatments Continue baseline gabapentin DVT prophylaxis: Lovenox Discharge Planning SNF planned Jeronimo Hardy MD Feb 27, 2017 14:16
[2017-02-27 16:00] VITALS: BP 144/63; PULSE 105; RESP 15; TEMP 100.4; O2SAT 91
[2017-02-27 19:00] VITALS: BP 116/61; PULSE 98; RESP 19; TEMP 98.6; O2SAT 92
[2017-02-27] MEDS: DULoxetine HCl DR 30 MG CAP PO SCH (20:40)
[2017-02-27] MEDS: ENOXAPARIN SODIUM 30 MG/0.3 ML SYRINGE SQ SCH (20:40)
[2017-02-28 00:19] VITALS: BP 117/58; PULSE 89; RESP 17; TEMP 99; O2SAT 94
[2017-02-28 07:59] LABS: HEMATOCRIT 30.1 % (35.0-46.0); MEAN CELL VOLUME 89.3 FL (80.0-100.0); MEAN CORPUSCULAR HEMOGLOBIN 30.5 PG (27.0-34.0); MEAN CORPUSCULAR HGB CONC 34.1 % (32.0-36.0); PLATELET COUNT 174 TH/MM3 (150-450); RED BLOOD COUNT 3.37 MIL/MM3 (4.00-5.30); RED CELL DISTRIBUTION WIDTH 14.5 % (11.6-17.2); REVIEW FLAG FINAL; WHITE BLOOD COUNT 13.8 TH/MM3 (4.0-11.0)
--- NOTE | 2017-02-28 07:59 | PD.ORT.PN ---
Subjective Post Op Day #: 3 Subjective Remarks doing well. thigh sore. pleased with progress. Objective Vitals Vital Signs Date Time Temp Pulse Resp B/P Pulse Ox O2 Delivery O2 Flow Rate FiO2 02/28/17 00:19 99.0 89 17 117/58 94 02/27/17 20:38 92 Nasal Cannula 2.00 02/27/17 19:00 98.6 98 19 116/61 92 02/27/17 16:00 100.4 105 15 144/63 91 02/27/17 12:00 98.6 86 14 112/54 95 02/27/17 08:00 97.7 89 14 136/62 93 I/O 02/27/17 02/27/17 02/27/17 02/28/17 02/28/17 02/28/17 07:00 15:00 23:00 07:00 15:00 23:00 Intake Total 240 ml 720 ml 960 ml 240 ml Output Total 700 ml 1 ml Balance 240 ml 20 ml 959 ml 240 ml Intake Oral 240 ml 720 ml 960 ml 240 ml Output Urine Total 700 ml 1 ml # Voids 1 2 2 2 # Bowel Movements 0 0 1 Result Diagram: 02/27/17 0635 02/26/17 0405 Objective Remarks in bed, nad dressing c/d/i thigh soft neg homans nvi Assessment & Plan Ortho Post Op Day #: 3 Problem List: Assessment and Plan s/p L LOUIE anterior approach wbat daily dressing changes lovenox d/c planning to snf - cleared for d/c today [id number] signed rx in chart f/up dr. cifuentes 2 weeks Delgado Blackman Feb 28, 2017 07:59
[2017-02-28 08:00] VITALS: BP 142/69; PULSE 97; RESP 20; TEMP 100.3; O2SAT 92
[2017-02-28] MEDS: ACETAMINOPHEN/HYDROcodone 325 MG/7.5 MG TAB PO PRN ×2 (08:35→17:01)
[2017-02-28] MEDS: MULTIVITAMINS/MINERALS THERAPEUTIC TAB PO SCH ×2 (08:35→21:05)
[2017-02-28] MEDS: GABAPENTIN 100 MG CAP PO SCH ×2 (08:35→21:05)
[2017-02-28] MEDS: amLODIPine BESYLATE 5 MG TAB PO SCH (08:35)
[2017-02-28] MEDS: DOCUSATE SODIUM 100 MG CAP PO SCH ×2 (08:35→21:05)
[2017-02-28] MEDS: SODIUM CHLORIDE 0.9% FLUSH 5 ML FLUSH IVF SCH ×2 (08:38→21:00)
[2017-02-28] MEDS: BUDESONIDE-FORMOTEROL 160/4.5 MCG INHALER INH SCH ×2 (08:39→21:06)
--- NOTE | 2017-02-28 09:53 | HHI.PR ---
Subjective Remarks Fever overnight. Leukocytosis increases this morning. It is too early for a surgical wound infection. Possible worsening of pre-existing pneumonia or UTI. Patient reports that she has COPD at baseline and is prone for bronchitis as an pneumonias. She also reports a productive cough that has started overnight. She reports diaphoresis at night. Objective Vital Signs Date Time Temp Pulse Resp B/P Pulse Ox O2 Delivery O2 Flow Rate FiO2 02/28/17 00:19 99.0 89 17 117/58 94 02/27/17 20:38 92 Nasal Cannula 2.00 02/27/17 19:00 98.6 98 19 116/61 92 02/27/17 16:00 100.4 105 15 144/63 91 02/27/17 12:00 98.6 86 14 112/54 95 I/O 02/27/17 02/27/17 02/27/17 02/28/17 02/28/17 02/28/17 07:00 15:00 23:00 07:00 15:00 23:00 Intake Total 240 ml 720 ml 960 ml 240 ml Output Total 700 ml 1 ml Balance 240 ml 20 ml 959 ml 240 ml Intake Oral 240 ml 720 ml 960 ml 240 ml Output Urine Total 700 ml 1 ml # Voids 1 2 2 2 # Bowel Movements 0 0 1 Result Diagram: 02/28/17 0713 02/26/17 0405 Objective Remarks GENERAL: NAD, A&Ox3 HEAD: Normocephalic. NECK: Supple, trachea midline. No lymphadenopathy. EYES: No scleral icterus. No injection or drainage. CARDIOVASCULAR: Regular rate and rhythm without murmurs, gallops, or rubs. RESPIRATORY: Breath sounds equal bilaterally. No accessory muscle use. GASTROINTESTINAL: Abdomen soft, non-tender, nondistended. MUSCULOSKELETAL: No cyanosis, or edema. Limited range of motion of left hip, left hip bandage. SKIN: Warm and dry. NEURO: No focal neurological deficitis. A/P Problem List: (1) HTN (hypertension) ICD Code: I10 (2) Primary localized osteoarthrosis, pelvic region and thigh ICD Code: M16.10 (3) Primary localized osteoarthrosis, pelvic region and thigh ICD Code: M16.10 Assessment and Plan Assessment and Plan 76 y/o female with a history of htn and osteoarthritis underwent a left total hip arthroplasty with Dr. Daniels on 02/25/17. Fever overnight. Leukocytosis present. Start Levaquin for coverage of UTI pneumonia. Obtain urinalysis and chest x-ray. Fever Leukocytosis Levaquin UA Chest x-ray HTN Norvasc PRN Enalapril Osteoarthritis s/p left total hip arthroplasty on 02/25/17 Ortho following PRN pain treatments Continue baseline gabapentin DVT prophylaxis: Lovenox Discharge Planning SNF planned Jeronimo Hardy MD Feb 28, 2017 09:53
[2017-02-28] MEDS: LEVOFLOXACIN 750 MG TAB PO SCH (11:28)
[2017-02-28 12:00] VITALS: BP 118/60; PULSE 88; RESP 20; TEMP 98.5; O2SAT 92
--- NOTE | 2017-02-28 12:07 | RADRPT ---
EXAM DATE/TIME: 02/28/2017 10:42 [facility] COMPARISON: CHEST PA & LAT, February 04, 2017, 10:15. INDICATIONS : Cough. MEDICAL HISTORY : Chronic obstructive pulmonary disease. Hypertension SURGICAL HISTORY : Left lower lobectomy. ENCOUNTER: Subsequent ACUITY: 4 - 6 days PAIN SCORE: 5/10 LOCATION: Bilateral chest FINDINGS: Linear airspace disease characteristic of atelectasis has developed in the right lung base. Chronic lung changes with hyperinflation and interstitial prominence remains evident in both lungs. The left hemidiaphragm is elevated. Heart and mediastinal structures are stable. CONCLUSION: Increasing airspace disease within the right lung base characteristic of atelectasis. COPD. No other significant change. Girish Ross MD on February 28, 2017 at 12:03 Board Certified Radiologist. This report was verified electronically.
[2017-02-28] MEDS: SODIUM CHLOR 0.9% 1000 ML INJ 1,000 ML IV SCH (14:33)
[2017-02-28 16:00] VITALS: BP 129/55; PULSE 90; RESP 20; TEMP 100.9; O2SAT 93
[2017-02-28 19:00] VITALS: BP 126/68; PULSE 97; RESP 17; TEMP 99.8; O2SAT 91
[2017-02-28] MEDS: ENOXAPARIN SODIUM 30 MG/0.3 ML SYRINGE SQ SCH (21:05)
[2017-02-28] MEDS: DULoxetine HCl DR 30 MG CAP PO SCH (21:05)
[2017-03-01] VITALS: BP 138/64; PULSE 98; RESP 17; TEMP 100.4; O2SAT 92
[2017-03-01] MEDS: SODIUM CHLOR 0.9% 1000 ML INJ 1,000 ML IV SCH ×3 (00:33→20:27)
[2017-03-01] MEDS: ACETAMINOPHEN/HYDROcodone 325 MG/7.5 MG TAB PO PRN ×4 (01:23→20:30)
[2017-03-01 08:00] VITALS: BP 123/64; PULSE 84; RESP 20; TEMP 97.5; O2SAT 95
[2017-03-01] MEDS: SODIUM CHLORIDE 0.9% FLUSH 5 ML FLUSH IVF SCH ×2 (09:00→20:27)
[2017-03-01 09:04] LABS: BLOOD, URINE NEG (NEG); COMMENT (UR) CULT NOT INDICATED; CULTURE IF INDICATED CULT NOT INDICATED; GLUCOSE,URINE NEG (NEG); KETONE, URINE NEG (NEG); MUCUS URINE FEW /lpf (OCC); NITRITE,URINE NEG (NEG); URINE COLOR YELLOW (YELLW/STRAW)
[2017-03-01] MEDS: MULTIVITAMINS/MINERALS THERAPEUTIC TAB PO SCH ×2 (10:57→20:26)
[2017-03-01] MEDS: LEVOFLOXACIN 750 MG TAB PO SCH (10:58)
[2017-03-01] MEDS: amLODIPine BESYLATE 5 MG TAB PO SCH (10:58)
[2017-03-01] MEDS: DOCUSATE SODIUM 100 MG CAP PO SCH ×2 (10:58→20:26)
[2017-03-01] MEDS: GABAPENTIN 100 MG CAP PO SCH ×2 (10:58→20:26)
[2017-03-01] MEDS: BUDESONIDE-FORMOTEROL 160/4.5 MCG INHALER INH SCH ×2 (10:59→20:27)
[2017-03-01] MEDS: cefTRIAXone INJ 1,000 MG in SODIUM CHLORIDE 0.9% INJ 100 ML IV SCH (11:20)
--- NOTE | 2017-03-01 11:46 | PD.ORT.PN ---
Subjective Post Op Day #: 4 Subjective Remarks diaphoretic last night. states cough is slightly productive. hx of COPD. Objective Vitals Vital Signs Date Time Temp Pulse Resp B/P Pulse Ox O2 Delivery O2 Flow Rate FiO2 03/01/17 08:00 97.5 84 20 123/64 95 03/01/17 00:00 100.4 98 17 138/64 92 02/28/17 20:00 91 Room Air 02/28/17 19:00 99.8 97 17 126/68 91 02/28/17 16:00 100.9 90 20 129/55 93 02/28/17 12:00 98.5 88 20 118/60 92 I/O 02/28/17 02/28/17 02/28/17 03/01/17 03/01/17 03/01/17 07:00 15:00 23:00 07:00 15:00 23:00 Intake Total 240 ml 480 ml 480 ml 240 ml Balance 240 ml 480 ml 480 ml 240 ml Intake Oral 240 ml 480 ml 480 ml 240 ml # Voids 2 2 3 3 # Bowel Movements 1 1 0 0 Result Diagram: 02/28/17 0713 02/26/17 0405 Objective Remarks in bed, nad incision no erythema, no drainage thigh soft neg homans nvi Assessment & Plan Ortho Post Op Day #: 4 Problem List: Assessment and Plan s/p L LOUIE anterior approach wbat daily dressing changes lovenox low grade temp atelectasis - Rocephin started by med d/c planning to snf - cleared by ortho when med sable [id number] signed rx in chart f/up dr. cifuentes 2 weeks Delgado Blackman Mar 01, 2017 11:46
--- NOTE | 2017-03-01 11:47 | HHI.FF ---
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 My clinical findings support the need for the requested home health care services because: Limited ability to care for self High risk of falls I certify that my clinical findings support that this patient is homebound because: Post-op weakness Unsteady gait/balance Delgado Blackman Mar 01, 2017 11:47
[2017-03-01 12:00] VITALS: BP 121/61; PULSE 88; RESP 20; TEMP 99.5; O2SAT 95
--- NOTE | 2017-03-01 15:32 | HHI.PR ---
Subjective Remarks 4 fevers since yesterday. Levaquin may not be treating her source of infection. Chest x-ray and urinalysis are within normal limits. Patient has no complaints of GI symptoms. No complaints of skin swelling or redness. The frequency of fevers does not correlate with what would be expected from postop atelectasis or postop anesthesia effect. Objective Vital Signs Date Time Temp Pulse Resp B/P Pulse Ox O2 Delivery O2 Flow Rate FiO2 03/01/17 12:00 99.5 88 20 121/61 95 03/01/17 08:00 97.5 84 20 123/64 95 03/01/17 00:00 100.4 98 17 138/64 92 02/28/17 20:00 91 Room Air 02/28/17 19:00 99.8 97 17 126/68 91 02/28/17 16:00 100.9 90 20 129/55 93 I/O 02/28/17 02/28/17 02/28/17 03/01/17 03/01/17 03/01/17 07:00 15:00 23:00 07:00 15:00 23:00 Intake Total 240 ml 480 ml 480 ml 240 ml 95 ml Balance 240 ml 480 ml 480 ml 240 ml 95 ml Intake Oral 240 ml 480 ml 480 ml 240 ml IV Total 95 ml # Voids 2 2 3 3 # Bowel Movements 1 1 0 0 Result Diagram: 02/28/17 0713 02/26/17 0405 Objective Remarks GENERAL: NAD, A&Ox3 HEAD: Normocephalic. NECK: Supple, trachea midline. No lymphadenopathy. EYES: No scleral icterus. No injection or drainage. CARDIOVASCULAR: Regular rate and rhythm without murmurs, gallops, or rubs. RESPIRATORY: Breath sounds equal bilaterally. No accessory muscle use. GASTROINTESTINAL: Abdomen soft, non-tender, nondistended. MUSCULOSKELETAL: No cyanosis, or edema. Limited range of motion of left hip, left hip bandage. SKIN: Warm and dry. NEURO: No focal neurological deficitis. A/P Problem List: (1) HTN (hypertension) ICD Code: I10 (2) Primary localized osteoarthrosis, pelvic region and thigh ICD Code: M16.10 (3) Primary localized osteoarthrosis, pelvic region and thigh ICD Code: M16.10 Assessment and Plan Assessment and Plan 76 y/o female with a history of htn and osteoarthritis underwent a left total hip arthroplasty with Dr. Daniels on 02/25/17. Fever overnight. Leukocytosis present. Continue Levaquin. Rocephin added as a treatment. Follow CBC. Follow fever frequency. Fever Leukocytosis Levaquin Rocephin UA Chest x-ray HTN Norvasc PRN Enalapril Osteoarthritis s/p left total hip arthroplasty on 02/25/17 Ortho following PRN pain treatments Continue baseline gabapentin DVT prophylaxis: Lovenox Discharge Planning SNF planned Jeronimo Hardy MD Mar 01, 2017 15:32
[2017-03-01 16:00] VITALS: BP 114/59; PULSE 87; RESP 20; TEMP 99.4; O2SAT 96
[2017-03-01 19:00] VITALS: BP 135/64; PULSE 91; RESP 17; TEMP 99.3; O2SAT 95
[2017-03-01] MEDS: DULoxetine HCl DR 30 MG CAP PO SCH (20:26)
[2017-03-01] MEDS: ENOXAPARIN SODIUM 30 MG/0.3 ML SYRINGE SQ SCH (20:27)
[2017-03-01] MEDS ORDERED: BENZONATATE 100 MG CAP PO PRN (23:45)
[2017-03-02] VITALS: BP 149/66; PULSE 91; RESP 16; TEMP 99.4; O2SAT 96
[2017-03-02] MEDS: ACETAMINOPHEN/HYDROcodone 325 MG/7.5 MG TAB PO PRN ×2 (00:12→04:13)
[2017-03-02] MEDS: SODIUM CHLOR 0.9% 1000 ML INJ 1,000 ML IV SCH (06:30)
[2017-03-02 07:26] LABS: HEMATOCRIT 28.5 % (35.0-46.0); MEAN CELL VOLUME 88.5 FL (80.0-100.0); MEAN CORPUSCULAR HEMOGLOBIN 30.1 PG (27.0-34.0); PLATELET COUNT 203 TH/MM3 (150-450); RED BLOOD COUNT 3.22 MIL/MM3 (4.00-5.30); RED CELL DISTRIBUTION WIDTH 14.3 % (11.6-17.2); REVIEW FLAG FINAL; WHITE BLOOD COUNT 9.8 TH/MM3 (4.0-11.0)
[2017-03-02 07:52] LABS: BICARBONATE 30.2 MEQ/L (21.0-32.0)
[2017-03-02 08:00] VITALS: BP 129/59; PULSE 82; RESP 18; TEMP 97.8; O2SAT 96
[2017-03-02] MEDS: SODIUM CHLORIDE 0.9% FLUSH 5 ML FLUSH IVF SCH (09:00)
[2017-03-02] MEDS: LEVOFLOXACIN 750 MG TAB PO SCH (09:05)
[2017-03-02] MEDS: amLODIPine BESYLATE 5 MG TAB PO SCH (09:06)
[2017-03-02] MEDS: cefTRIAXone INJ 1,000 MG in SODIUM CHLORIDE 0.9% INJ 100 ML IV SCH (09:06)
[2017-03-02] MEDS: GABAPENTIN 100 MG CAP PO SCH (09:06)
[2017-03-02] MEDS: MULTIVITAMINS/MINERALS THERAPEUTIC TAB PO SCH (09:06)
[2017-03-02] MEDS: DOCUSATE SODIUM 100 MG CAP PO SCH (09:06)
[2017-03-02] MEDS: BUDESONIDE-FORMOTEROL 160/4.5 MCG INHALER INH SCH (09:07)
[2017-03-02] MEDS ORDERED: LEVA500T20 PO (09:44)
[2017-03-02] MEDS ORDERED: LACTTAB8 PO (09:44)
[2017-03-02] MEDS ORDERED: CEPH-460 PO (09:44)
--- NOTE | 2017-03-02 09:49 | HHI.PR ---
Subjective Remarks Fevers have resolved. Patient is on Levaquin and Rocephin. Etiology for fevers is unclear based on chest x-ray and urinalysis. No evidence of any signs of wound infection. Primary sources of suspicion remaining the chest and urine. Due to her response to Levaquin and Rocephin she will be discharged on oral antibiotic equivalents. At this point she is medically stable for discharge to nursing home facility as planned. Objective Vital Signs Date Time Temp Pulse Resp B/P Pulse Ox O2 Delivery O2 Flow Rate FiO2 03/02/17 00:00 99.4 91 16 149/66 96 03/01/17 20:00 95 Room Air 03/01/17 19:00 99.3 91 17 135/64 95 03/01/17 16:00 99.4 87 20 114/59 96 03/01/17 12:00 99.5 88 20 121/61 95 I/O 03/01/17 03/01/17 03/01/17 03/02/17 03/02/17 03/02/17 07:00 15:00 23:00 07:00 15:00 23:00 Intake Total 240 ml 335 ml 480 ml 480 ml Balance 240 ml 335 ml 480 ml 480 ml Intake Oral 240 ml 240 ml 480 ml 480 ml IV Total 95 ml # Voids 3 3 3 3 # Bowel Movements 0 0 0 0 Result Diagram: 03/02/17 0656 03/02/17655 Objective Remarks GENERAL: NAD, A&Ox3 HEAD: Normocephalic. NECK: Supple, trachea midline. No lymphadenopathy. EYES: No scleral icterus. No injection or drainage. CARDIOVASCULAR: Regular rate and rhythm without murmurs, gallops, or rubs. RESPIRATORY: Breath sounds equal bilaterally. No accessory muscle use. GASTROINTESTINAL: Abdomen soft, non-tender, nondistended. MUSCULOSKELETAL: No cyanosis, or edema. Limited range of motion of left hip, left hip bandage. SKIN: Warm and dry. NEURO: No focal neurological deficitis. A/P Problem List: (1) HTN (hypertension) ICD Code: I10 (2) Primary localized osteoarthrosis, pelvic region and thigh ICD Code: M16.10 (3) Primary localized osteoarthrosis, pelvic region and thigh ICD Code: M16.10 Assessment and Plan Assessment and Plan 76 y/o female with a history of htn and osteoarthritis underwent a left total hip arthroplasty with Dr. Daniels on 02/25/17. No further fevers. Medically stable for discharge on Levaquin and Keflex. She'll be on antibiotics for 5 days with probiotics for 10 days. Discharge to nursing home facility today. Fever Leukocytosis Levaquin Rocephin Leukocytosis has resolved on antibiotics Fever has resolved UA negative Chest x-ray negative HTN Norvasc PRN Enalapril Osteoarthritis s/p left total hip arthroplasty on 02/25/17 Ortho following PRN pain treatments Continue baseline gabapentin DVT prophylaxis: Lovenox Discharge Planning SNF planned Jeronimo Hardy MD Mar 02, 2017 9:49 am
[2017-03-02 13:02] VITALS: BP 137/71; PULSE 86; RESP 18; TEMP 96.6; O2SAT 97
--- NOTE | 2017-03-05 07:12 | MD ---
cc: MICHEAL BRONSON ADMISSION DATE: 02/25/2017 DISCHARGE DATE: 03/02/2017 ADMISSION DIAGNOSIS Severe degenerative osteoarthritis left hip. DISCHARGE DIAGNOSIS Severe degenerative osteoarthritis left hip. HISTORY OF PRESENT ILLNESS Mrs. Whiteside is a 76-year-old female who presented to the [facility] for evaluation by Dr. Micheal Bronson regarding her severe and progressive left hip pain. The patient states the pain has been bothering in the left hip region for several years for which she has received treatment for this ailment. She notes her pain is aggravated by weightbearing activity and is currently inhibiting activities of daily living. She has no alleviating factors although in the past she has tried medications, assistive devices, physical therapy, exercise program and corticosteroid injections without relief of symptoms. She does have a history of a well-positioned and functioning right total hip arthroplaty. The patient does also have x-ray evidence of severe degenerative osteoarthritis of the left hip. While in the office the patient was counseled on her diagnosis and treatment options. The risks, benefits and indications of all have all been discussed in great detail. The patient did elect to proceed with surgical intervention to include a left total hip arthroplasty. DATE OF SURGERY 02/25/2017 - Left total hip arthroplasty anterior approach. POSTOP After surgery the patient was admitted to [facility] where she received appropriate medical management, pain control, DVT prophylaxis as well as physical therapy. DISCHARGE Once being discharged from the hospital, the patient was cleared to go to a long term facility. She is in stable condition. She can weight bear as tolerated with anterior hip precautions. She is to receive daily dressing changes and has been instructed in appropriate wound care management. DISCHARGE MEDICATIONS The patient has been provided prescriptions for pain control as well as DVT prophylaxis medication. FOLLOWUP She has also been provided a follow-up appointment to see Dr. Micheal Bronson in the office in approximately two weeks from the date of surgery. The patient has asked appropriate questions which have all been answered. The patient has been cleared for discharge. Dictated by: Virgilio Blackman PA-C MD BUZZ Colón/ARIEL /8:06 AM /7:15 AM
== END 2017-03-02 13:43 | DRG 470 ==
LOC: HSDI 02-25 05:05 → N06B 02-25 10:38
PROVIDERS: ADMIT Orthopaedic Surgery Sports Medicine; ATTEND Orthopaedic Surgery Sports Medicine
PROC: 0SRB02A Replacement of Left Hip Joint with Metal on Polyethylene Synthetic Substitute, Uncemented, Open Approach (ICD-10-PCS; principal; 2017-02-25 06:43)
DX: M16.12 Unilateral primary osteoarthritis, left hip (principal); J44.9 Chronic obstructive pulmonary disease, unspecified; R50.82 Postprocedural fever; I10 Essential (primary) hypertension; F32.9 Major depressive disorder, single episode, unspecified; Z85.820 Personal history of malignant melanoma of skin
CPT/HCPCS: 71010; 73502; 76000; 80048; 81001; 85027; 86850; 86900; 86901; 87040; 94150; 94664; C1776; C9290; J0131; J0690; J0696; J1100; J1170; J1580; J1650; J2250; J2270; J2405; J2710; J3010; J3370; J7030; J7050; J7120; J7613

== ENCOUNTER → 2017-02-04 | Outpatient (CLI) | payer MEDICARE, BC ==
[2017-02-04 09:44] LABS: AUTOMATED NEUTROPHIL # 3.9 TH/MM3 (1.8-7.7); BASOPHIL % 0.7 % (0.0-2.0); EOSINOPHIL # 0.3 TH/MM3 (0-0.4); EOSINOPHIL % 4.3 % (0.0-4.0); HEMATOCRIT 38.3 % (35.0-46.0); HEMO FLAGS DIFF FINAL; LYMPH % 25.5 % (9.0-44.0); LYMPHOCYTE # 1.6 TH/MM3 (1.0-4.8); MEAN CELL VOLUME 87.2 FL (80.0-100.0); MEAN CORPUSCULAR HEMOGLOBIN 29.9 PG (27.0-34.0); MEAN CORPUSCULAR HGB CONC 34.4 % (32.0-36.0); MONO % 8.5 % (0.0-8.0); PLATELET COUNT 192 TH/MM3 (150-450); RED CELL DISTRIBUTION WIDTH 14.6 % (11.6-17.2); WHITE BLOOD COUNT 6.3 TH/MM3 (4.0-11.0)
[2017-02-04 10:01] LABS: WESTERGREN SEDIMENTATION RATE 10 mm/hr (0-30)
[2017-02-04 10:07] LABS: APTT (PATIENT) 26.1 SEC (24.3-30.1); PROTHROMBIN TIME - PATIENT 10.7 SEC (9.8-11.6)
[2017-02-04 10:15] LABS: ALKALINE PHOSPHATASE 109 U/L (45-117); ALT (GPT) 25 U/L (10-53); ANION GAP 8 MEQ/L (5-15); AST (GOT) 21 U/L (15-37); BICARBONATE 30.1 MEQ/L (21.0-32.0); BLOOD UREA NITROGEN 13 MG/DL (7-18); CHLORIDE 105 MEQ/L (98-107); GLOMERULAR FILTRATION RATE 85 ML/MIN (>89); GLUCOSE,FASTING 116 MG/DL (74-99); POTASSIUM 3.6 MEQ/L (3.5-5.1); SODIUM (NA) 143 MEQ/L (136-145); TOTAL BILIRUBIN ADULT 0.4 MG/DL (0.2-1.0)
--- NOTE | 2017-02-04 10:26 | RADRPT ---
EXAM DATE/TIME: 02/04/2017 10:15 [facility] COMPARISON: CHEST PA & LAT, March 16, 2016, 12:16. INDICATIONS : Evaluate for pneumonia, pneumothorax or communicable disease. Pre-op left hip surgery. MEDICAL HISTORY : Chronic obstructive pulmonary disease. Hypertension SURGICAL HISTORY : Left lower lobectomy. ENCOUNTER: Initial ACUITY: 1 day PAIN SCORE: 0/10 LOCATION: Bilateral chest FINDINGS: Frontal and lateral views of the chest demonstrate a normal-sized cardiac silhouette with calcificati on of the aorta. There is chronic marked elevation left hemidiaphragm with chronic atelectasis at the left lung base. There is stable linear scar at the right lung base. Asymmetric opacity is present at the left lung apex, stable compared to the March 2016 exam. No effusion, consolidation, or pneumothor ax is identified. There is dextroscoliosis of the thoraco- lumbar spine. CONCLUSION: 1. Stable chest x-ray without acute finding identified. There is chronic elevation of the left hemidi aphragm with atelectasis at the left lung base. 2. Stable left apical opacity. Jose Franco MD on February 04, 2017 at 10:22 Board Certified Radiologist. This report was verified electronically.
[2017-02-04 11:20] LABS: BACTERIA, URINE RARE /hpf; BLOOD, URINE TRACE (NEG); COMMENT (UR) CULT NOT INDICATED; CULTURE IF INDICATED CULT NOT INDICATED; GLUCOSE,URINE NEG (NEG); HYALINE CAST, URINE 1 /lpf (RARE); KETONE, URINE NEG (NEG); MUCUS URINE FEW /lpf (OCC); NITRITE,URINE NEG (NEG); PH, URINE 6.5 (5.0-8.5); SQUAMOUS EPITHELIAL CELL URINE <1 /hpf (0-5); URINE COLOR YELLOW (YELLW/STRAW)
--- NOTE | 2017-02-05 15:17 | EKG ---
Date Performed: 02/04/2017 Time Performed: 09:23:33 PTAGE: 76 years EKG: Sinus rhythm MODERATE ST DEPRESSION ABNORMAL ECG Compared to prior tracing no significant change PREVIOUS TRACING : 03/16/2016 09.25 DOCTOR: Afsaneh Piña Interpretating Date/Time 02/05/2017 15:16:45
== END ==
LOC: CPRE 08:57
PROVIDERS: ATTEND Orthopaedic Surgery Sports Medicine
DX: Z01.810 Encounter for preprocedural cardiovascular examination (principal); Z01.812 Encounter for preprocedural laboratory examination; M16.12 Unilateral primary osteoarthritis, left hip; M25.50 Pain in unspecified joint; R94.31 Abnormal electrocardiogram [ECG] [EKG]; Z79.01 Long term (current) use of anticoagulants
CPT/HCPCS: 36415; 71020; 80053; 81001; 85025; 85610; 85652; 85730; 93005

== ENCOUNTER 2017-06-22 15:32 | Observation (INO) | payer MEDICARE, BC ==
[2017-06-22] VITALS (9 sets, daily range): BP systolic 117–172; BP diastolic 60–72; PULSE 74–89; RESP 13–18; TEMP 97.9–98.6; O2SAT 95–98
[~2017-06-22] VITALS: Ht 167.6 cm; Wt 74.0 kg
[~2017-06-22 15:32] MED LIST changes: -ADVAI100I PO; -ALEV220T14 PO; -AMLO5TAB96 PO; -APIX2.5T PO; -COMBAER INH; -GUAI600 PO; -MUCI600T PO; -NAPR220T95 PO; -NORC7.5T PO; -ROLACHW21 CHEW; -VITA200017 PO; -Z.0.COMMODE-3:1; -Z.0.WALKERFRONT
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
[2017-06-22] MEDS ORDERED: SODIUM CHLORIDE 0.9% FLUSH 10 ML FLUSH IVF PRN (16:45)
[2017-06-22] MEDS ORDERED: ASPIRIN 81 MG CHEW TAB PO ONE (16:45)
[2017-06-22] MEDS ORDERED: RESP: ALBUTEROL 2.5 MG/IPRATROPIUM 0.5 MG NEB (SCH) INH ONE (16:45)
[2017-06-22] MEDS: NITROGLYCERIN 0.4 MG SL 25 TABS/BTL SL SCH ×3 (16:45→17:14)
[2017-06-22 16:58] LABS: AUTOMATED NEUTROPHIL # 4.1 TH/MM3 (1.8-7.7); BASOPHIL # 0.1 TH/MM3 (0-0.2); BASOPHIL % 1.1 % (0.0-2.0); EOSINOPHIL # 0.3 TH/MM3 (0-0.4); EOSINOPHIL % 3.8 % (0.0-4.0); HEMATOCRIT 38.6 % (35.0-46.0); HEMO FLAGS DIFF FINAL; LYMPH % 30.2 % (9.0-44.0); LYMPHOCYTE # 2.2 TH/MM3 (1.0-4.8); MEAN CORPUSCULAR HGB CONC 33.3 % (32.0-36.0); MONO % 9.5 % (0.0-8.0); NEUT % 55.4 % (16.0-70.0); PLATELET COUNT 192 TH/MM3 (150-450); RED BLOOD COUNT 4.44 MIL/MM3 (4.00-5.30); RED CELL DISTRIBUTION WIDTH 15.3 % (11.6-17.2); WHITE BLOOD COUNT 7.4 TH/MM3 (4.0-11.0)
[2017-06-22 17:03] LABS: APTT (PATIENT) 26.3 SEC (24.3-30.1); INTERNATIONAL NORMALIZED RATIO 0.9 RATIO; PROTHROMBIN TIME - PATIENT 10.2 SEC (9.8-11.6)
--- NOTE | 2017-06-22 17:11 | RADRPT ---
EXAM DATE/TIME: 06/22/2017 16:47 [facility] COMPARISON: CHEST SINGLE AP, February 28, 2017, 10:42. INDICATIONS : Chest pain, Shortness of breath. MEDICAL HISTORY : Chronic obstructive pulmonary disease. asthma SURGICAL HISTORY : Lobectomy. Left side. Left hiatal hernia. ENCOUNTER: Initial ACUITY: 2 weeks PAIN SCORE: 6/10 LOCATION: chest Center FINDINGS: Stable elevation of the left hemidiaphragm, left basilar atelectasis and right basilar atelectasis an d infiltrate suspected. Aortic calcification and cardiomegaly. Left apical pleural opacity is again s een, and asymmetric from the right. CONCLUSION: Basilar atelectasis and right basilar infiltrate suspected. Bart Christensen MD on June 22, 2017 at 17:08 Board Certified Radiologist. This report was verified electronically.
[2017-06-22 17:30] LABS: ALKALINE PHOSPHATASE 127 U/L (45-117); ALT (GPT) 27 U/L (10-53); ANION GAP 7 MEQ/L (5-15); AST (GOT) 26 U/L (15-37); BICARBONATE 27.8 MEQ/L (21.0-32.0); BLOOD UREA NITROGEN 16 MG/DL (7-18); CHLORIDE 105 MEQ/L (98-107); CREATINE KINASE 113 U/L (26-192); GLOMERULAR FILTRATION RATE 90 ML/MIN (>89); MAGNESIUM 2.2 MG/DL (1.5-2.5); POTASSIUM 3.6 MEQ/L (3.5-5.1); SODIUM (NA) 140 MEQ/L (136-145); TOTAL BILIRUBIN ADULT 0.3 MG/DL (0.2-1.0)
[2017-06-22 17:42] LABS: CKMB 1.7 NG/ML (0.5-3.6)
[2017-06-22] MEDS ORDERED: MORPHINE SULFATE 4 MG/ML INJ IV PUSH ONE (17:45)
[2017-06-22] MEDS ORDERED: SODIUM CHLORIDE 0.9% FLUSH 10 ML FLUSH IV FLUSH PRN (17:45)
[2017-06-22] MEDS ORDERED: PANTOPRAZOLE SODIUM 40 MG VIAL IVP ONE (17:45)
[2017-06-22] MEDS ORDERED: ACETAMINOPHEN 500 MG CPLT PO PRN (18:15)
[2017-06-22] MEDS ORDERED: NITROGLYCERIN 0.4 MG SL 25 TABS/BTL SL PRN (18:15)
[2017-06-22] MEDS ORDERED: ONDANSETRON HCL 4 MG/2 ML VIAL IV PUSH PRN (18:15)
[2017-06-22] MEDS ORDERED: guaiFENesin E.R. 600 MG TAB PO PRN (18:45)
[2017-06-22] MEDS ORDERED: DEXTROMETHORPHAN SYRUP 7.5MG/5ML UDC PO PRN (18:45)
[2017-06-22] MEDS ORDERED: ALBUTEROL SULFATE 90 MCG/ACT HFA 8 GM INHALER INH PRN (18:45)
[2017-06-22] MEDS: SODIUM CHLORIDE 0.9% FLUSH 10 ML FLUSH IV FLUSH SCH (21:00)
[2017-06-22] MEDS: GABAPENTIN 100 MG CAP PO SCH (21:00)
[2017-06-22] MEDS ORDERED: DULoxetine HCl DR 30 MG CAP PO SCH (21:00)
[2017-06-22] MEDS: BUDESONIDE-FORMOTEROL 160/4.5 MCG INHALER INH SCH (21:06)
[2017-06-22 22:08] LABS: CREATINE KINASE 94 U/L (26-192)
[2017-06-22 23:38] LABS: CREATINE KINASE 91 U/L (26-192)
[2017-06-23] VITALS (7 sets, daily range): BP systolic 124–144; BP diastolic 63–67; PULSE 73–79; RESP 16; TEMP 98–98.3; O2SAT 95–96
--- NOTE | 2017-06-23 05:59 | EKG ---
Date Performed: 06/22/2017 Time Performed: 16:25:21 PTAGE: 76 years EKG: Sinus rhythm NONSPECIFIC T-WAVE ABNORMALITY BORDERLINE ECG INTERPRETATION BASED ON A DEFAULT AGE OF 40 YEARS PREVIOUS TRACING : 02/04/2017 09.23 DOCTOR: Abbe Myles Interpretating Date/Time 06/23/2017 05:55:43
--- NOTE | 2017-06-23 08:17 | HHI.HP ---
HPI Primary Care Physician Diane Chand MD Chief Complaint Chest pain History of Present Illness 76-year-old female with history of COPD, hypertension, and osteoarthritis presents to emergency room for further evaluation of chest pain. Symptoms initially began 3 weeks ago. Over last 3 days discomfort became constant therefore she went to urgent care. Cheryl in urgent care directed to ER for further evaluation of ongoing chest pain. Location substernal, finger points location. Characterized as a "a pounding, constant nail in my chest." No radiation. No associated symptoms of nausea, vomiting, or diaphoresis. Reports mild dyspnea while carrying laundry basket yesterday, describing discomfort as a weighted pressure. No known precipitating or relieving factors. Initially thought discomfort related to indigestion, stating never had acid reflux problems in the past. Endorses increase in belching and a generalized uncomfortable feeling. Took Gas-X with some relief. No particular movement, position, or deep breathing makes pain better or worse. Denies similar pain in the past. Review of Systems General: No fatigue,weakness, fever, chills, recent illness, or change in appetite. Has been in her general state of health other than stated above. HEENT: No ROCHA. Nasal congestion and drainage resolved, recently treated and completed antibiotics for sinus and upper respiratory infection. Feels that infection has resolved. CV: Continues to have chest discomfort as stated above. No palpitations, intermittent leg pain, or dizziness. RESP: History of COPD, allergy induced asthma, and left lower lobectomy-age 20. Mild dyspnea yesterday as stated above. No cough, wheeze, or sputum production. GI: No nausea, vomiting, bowel changes, diarrhea, constipation, pain, distention , melena, or blood in the stool. Decrease appetite she related to "feeling full and uncomfortable lately." No unintentional weight gain or weight loss. : No dysuria, urgency, frequency, or history of frequent UTI EXT: No lower leg edema, no paraesthesias MS: No discomfort or change in ROM, no injury or trauma NEURO: No difficulty with balance, LOC, motor/sensory deficits PSYCH: Current situation stress stating her younger brother recently and are planning a trip to attend next weekend. No anxiety or depression. SKIN: No rashes, no concerning lesions. History of melanoma in her 20s. Past Family Social History Allergies: Coded Allergies: No Known Allergies (Unverified , 02/25/17) Past Medical History ` COPD, asthma, hypertension, osteoarthritis, anxiety, melanoma (early 20s), hyperlipidemia (reports diet controlled) Past Surgical History Hysterectomy, bilateral hip replacement, left lower lobectomy (age 20 or 21- reportedly from frequent pneumonia infections), appendectomy, left elbow repair Reported Medications Active Lactobacillus Acidophilus 1 Tab Tab 1 Tab PO TIDAC Mucinex DM (Dextromethorphan-Guaifenesin) 30-600 Mg Tab 1 Tab PO BID PRN Combivent Respimat Inh (Ipratropium-Albuterol Inh) 20-100 Care Home/Act Aero 1 Puff INH QID PRN Gabapentin 100 Mg Cap 100 Mg PO BID Advair Diskus Inh (Fluticasone-Salmeterol Inh) 250-50 Mcg/Blist Aer 1 Puff INH BID Rinse mouth after use. Cymbalta DR (Duloxetine HCl) 30 Mg Capdr 30 Mg PO HS Vitamin D3 (Cholecalciferol) 5,000 Unit Cap 5,000 Units PO DAILY Tums E-X 750 (Calcium Carbonate (Antacid)) 750 Mg Chew 750 Mg CHEW PRN Norvasc (Amlodipine Besylate) 5 Mg Tab 5 Mg PO DAILY Active Ordered Medications Current Medications Medications (Trade) Dose Ordered Sig/Clari Route Start Time Stop Time Status Last Admin (NS Flush) 2 ml UNSCH PRN IV FLUSH 06/22/17 17:45 (NS Flush) 2 ml BID IV FLUSH 06/22/17 21:00 (Tylenol) 500 mg Q4H PRN PO 06/22/17 18:15 (Zofran Inj) 4 mg Q6H PRN IV PUSH 06/22/17 18:15 (Nitrostat Sl) 0.4 mg Q5M PRN SL 06/22/17 18:15 (Aspirin) 325 mg DAILY PO 06/23/17 09:00 (Norvasc) 5 mg DAILY PO 06/23/17 09:00 (Cymbalta Dr) 30 mg HS PO 06/22/17 21:00 06/22/17 21:06 (Neurontin) 100 mg BID PO 06/22/17 21:00 (Mucinex Er) 600 mg BID PRN PO 06/22/17 18:45 (Symbicort 160-4.5 Inh) 1 puff BID INH 06/22/17 21:00 06/22/17 21:06 (Proair Hfa Inh) 1 puff QID PRN INH 06/22/17 18:45 (Robitussin La Pediatric Cough Liq) 30 mg BID PRN PO 06/22/17 18:45 Family History Noncontributory to early onset cardiovascular disease. Sister [address] beginning in her early 60s. Mother age 90 from congestive heart failure. Father age 61 from tuberculosis complications. Social History No known diabetes or coronary artery disease. Known hypertension. Hyperlipidemia is controlled with diet, stopped statins approx. 5 years ago. Lifelong nonsmoker. Occasionally has a glass of wine. Reports staying busy, declines purposeful daily activity. Past Cardiac Testing None Physical Exam Vital Signs Vital Signs Date Time Temp Pulse Resp B/P (MAP) Pulse Ox O2 Delivery O2 Flow Rate FiO2 06/23/17 04:20 98.0 77 16 136/64 (88) 95 06/23/17 04:01 78 06/23/17 00:02 78 06/22/17 22:53 98.2 80 15 128/61 (83) 96 06/22/17 20:32 98.3 81 17 157/72 (100) 96 06/22/17 20:29 78 06/22/17 20:15 06/22/17 18:00 17 06/22/17 17:57 97.9 80 17 156/68 (97) 98 Room Air 06/22/17 17:19 74 17 131/64 (86) 97 Room Air 06/22/17 17:19 16 06/22/17 16:59 83 17 132/63 (86) 98 Room Air 06/22/17 16:47 89 17 157/71 (99) 98 Room Air 117/60 (79) 06/22/17 16:37 97 Room Air 06/22/17 16:37 18 97 Room Air 06/22/17 16:15 82 16 96 Room Air 06/22/17 15:37 98.6 85 13 172/72 (105) 95 Physical Exam GENERAL: Alert WN, WD, NAD, pleasant, elderly female HEAD: NC, AT EYES: Sclera clear, conjunctiva without injection, pupils equal and round ENT: Mucous membranes pink and moist NECK: Supple, no masses, trachea midline CV: RRR, without murmur, rub, gallop, no JVD, S1-S2 no S3-S4. No carotid bruits. Substernal chest wall pain reproducible with palpation. RESP: Clear lungs throughout bilateral, absence lung sounds left lower lobe. no crackles, wheeze, rhonchi, symmetrical chest rise, nonlabored, able to speak in full sentences ABD: Soft, NT, ND, no masses, positive bowel tones BACK: No CVAT EXT: Pulses +24, no dependent edema MS: Normal tone 4 extremities, nontender, no obvious deformities, full range of motion NEURO: CN II through CN XII grossly intact, motor strength 5/5 PSYCH: A+O 3, pleasant affect, appropriate speech, appropriate mood and affect , insight and judgment SKIN: Normal turgor, normal texture, no lesions, no rashes, brisk cap refill, even hair distribution, left forearm moderate size surgical scar Laboratory Laboratory Tests Test 06/22/17 16:39 06/22/17 20:45 06/22/17 22:40 White Blood Count 7.4 Red Blood Count 4.44 Hemoglobin 12.9 Hematocrit 38.6 Mean Corpuscular Volume 87.0 Mean Corpuscular Hemoglobin 29.0 Mean Corpuscular Hemoglobin Concent 33.3 Red Cell Distribution Width 15.3 Platelet Count 192 Mean Platelet Volume 10.1 Neutrophils (%) (Auto) 55.4 Lymphocytes (%) (Auto) 30.2 Monocytes (%) (Auto) 9.5 Eosinophils (%) (Auto) 3.8 Basophils (%) (Auto) 1.1 Neutrophils # (Auto) 4.1 Lymphocytes # (Auto) 2.2 Monocytes # (Auto) 0.7 Eosinophils # (Auto) 0.3 Basophils # (Auto) 0.1 CBC Comment DIFF FINAL Differential Comment Prothrombin Time 10.2 Prothromb Time International Ratio 0.9 Activated Partial Thromboplast Time 26.3 Blood Urea Nitrogen 16 Creatinine 0.64 Random Glucose 112 Total Protein 7.3 Albumin 3.6 Calcium Level 9.1 Magnesium Level 2.2 Alkaline Phosphatase 127 Aspartate Amino Transf (AST/SGOT) 26 Alanine Aminotransferase (ALT/SGPT) 27 Total Bilirubin 0.3 Sodium Level 140 Potassium Level 3.6 Chloride Level 105 Carbon Dioxide Level 27.8 Anion Gap 7 Estimat Glomerular Filtration Rate 90 Total Creatine Kinase 113 94 91 Creatine Kinase MB 1.7 Troponin I LESS THAN 0.02 LESS THAN 0.02 LESS THAN 0.02 Lipase 139 Result Diagram: 06/22/17 1639 06/22/17 1639 Imaging Last Impressions Chest X-Ray 06/22/17 1635 Signed Impressions: Service Date/Time: Thursday, June 22, 2017 16:47 - CONCLUSION: Basilar atelectasis and right basilar infiltrate suspected. Bart Christensen MD Course EKG NSR, normal axis, no st t segment changes Caprini VTE Risk Assessment Caprini VTE Risk Assessment: Mod/High Risk (score >= 2) Caprini Risk Assessment Model Point Value = 1 Point Value = 2 Point Value = 3 Point Value = 5 Age 41-60 Minor surgery BMI > 25 kg/m2 Swollen legs Varicose veins or History of unexplained or recurrent spontaneous Oral contraceptives or hormone replacement Sepsis (< 1 month) Serious lung disease, including pneumonia (< 1 month) Abnormal pulmonary function Acute myocardial infarction Congestive heart failure (< 1 month) History of inflammatory bowel disease Medical patient at bed rest Age 61-74 Arthroscopic surgery Major open surgery (> 45 min) Laparoscopic surgery (> 45 min) Malignancy Confined to bed (> 72 hours) Immobilizing plaster cast Central venous access Age >= 75 History of VTE Family history of VTE Factor V Leiden Prothrombin [id number] Lupus anticoagulant Anticardiolipin antibodies Elevated serum homocysteine Heparin-induced thrombocytopenia Other congenital or acquired thrombophilia Stroke (< 1 month) Elective arthroplasty Hip, pelvis, or leg fracture Acute spinal cord injury (< 1 month) Prophylaxis Regimen Total Risk Factor Score Risk Level Prophylaxis Regimen 0-1 Low Early ambulation 2 Moderate Order ONE of the following: *Sequential Compression Device (SCD) *Heparin 5000 units SQ BID 3-4 Higher Order ONE of the following medications: *Heparin 5000 units SQ TID *Enoxaparin/Lovenox 40 mg SQ daily (WT < 150 kg, CrCl > 30 mL/min) *Enoxaparin/Lovenox 30 mg SQ daily (WT < 150 kg, CrCl > 10-29 mL/min) *Enoxaparin/Lovenox 30 mg SQ BID (WT < 150 kg, CrCl > 30 mL/min) AND/OR *Sequential Compression Device (SCD) 5 or more Highest Order ONE of the following medications: *Heparin 5000 units SQ TID (Preferred with Epidurals) *Enoxaparin/Lovenox 40 mg SQ daily (WT < 150 kg, CrCl > 30 mL/min) *Enoxaparin/Lovenox 30 mg SQ daily (WT < 150 kg, CrCl > 10-29 mL/min) *Enoxaparin/Lovenox 30 mg SQ BID (WT < 150 kg, CrCl > 30 mL/min) AND *Sequential Compression Device (SCD) Assessment and Plan Assessment and Plan #1 Atypical Chest pain-admitted to chest pain center. Ruled out with 3 sets of EKGs, cardiac enzymes, and monitored overnight. Will be seen and evaluated by Dr. Jairo Breaux. Discussed likelihood will proceed with exercise stress test later this morning due to risk factors not for presenting symptoms. Presenting symptoms constant chest pain 3 days most likely chest wall inflammation, reassurance provided. If stress test unremarkable, plans to discharge later this afternoon. Patient agreeable to plan of care. #2 GERD-GI cocktail, protonix iv given in ER #3 COPD-continue Combivent, Mucinex, and Advair Diskus, albuterol every 2 when necessary, dose provided prior to exercise stress test #4 Hypertension-continue amlodipine 1215: Report GI cocktail almost completely resolved her discomfort. 1245: Treadmill nonspecific ST T changes V4-V6 prior to ett not seen resting EKG. Will proceed with nuclear ETT. Kathleen Gonzalez Jun 23, 2017 08:13
[2017-06-23] MEDS ORDERED: ASPIRIN 325 MG TAB PO SCH (09:00)
[2017-06-23] MEDS ORDERED: amLODIPine BESYLATE 5 MG TAB PO SCH (09:00)
[2017-06-23] MEDS ORDERED: LIDOCAINE VISCOUS 2% SOLN 15 ML UDC SWISH-SWAL ONE (09:45)
[2017-06-23] MEDS ORDERED: ALUMINUM/MAGNESIUM/SIMETH 30 ML CUP PO ONE (09:45)
[2017-06-23] MEDS: GABAPENTIN 100 MG CAP PO SCH (10:32)
[2017-06-23] MEDS: SODIUM CHLORIDE 0.9% FLUSH 10 ML FLUSH IV FLUSH SCH (10:40)
[2017-06-23] MEDS: BUDESONIDE-FORMOTEROL 160/4.5 MCG INHALER INH SCH (10:40)
[2017-06-23] MEDS ORDERED: RESP: ALBUTEROL 2.5 MG/3 ML NEB (PRN) NEB (10:45)
--- NOTE | 2017-06-23 12:21 | EKG ---
Date Performed: 06/22/2017 Time Performed: 20:22:13 PTAGE: 76 years EKG: Sinus rhythm NONSPECIFIC ST & T-WAVE ABNORMALITY BORDERLINE ECG PREVIOUS TRACING : 06/22/2017 16.25 Since previous tracing, no significant change noted DOCTOR: Jairo Breaux Interpretating Date/Time 06/23/2017 12:21:33
--- NOTE | 2017-06-23 12:24 | EKG ---
Date Performed: 06/22/2017 Time Performed: 22:50:35 PTAGE: 76 years EKG: Sinus rhythm with PVCs NONSPECIFIC T-WAVE ABNORMALITY BORDERLINE ECG PREVIOUS TRACING : 06/22/2017 20.22 Since previous tracing, no significant change noted DOCTOR: Jairo Breaux Interpretating Date/Time 06/23/2017 12:22:27
--- NOTE | 2017-06-23 14:19 | TR ---
Date Performed: 06/23/2017 Time Performed: 12:23:32 DOCTOR: Jairo Breaux DRUG LIST: CLINICAL HISTORY: CHEST PAIN REASON FOR TEST: Chest pain REASON FOR ENDING: OBSERVATION: CONCLUSION: [place] protocol completed. Stopped sec to exceeding target heart rate and leg fatigue . Maximum VO=572 Target HR Achieved=93.0% Total Exercise Time=3:01. Freq PVCs. T wave inversion V4-V6 prior to exam not seen in baseline resting EKGs. T wave inversion and nonspecific st changes unchang ed during exam and recovery. Unable to interpret accurately to determine st t segment changes ischemi a in nature. Hypertensive bp response. Fair exercise tolerance. Recovery quick and unremarkable. COMMENTS: ST segments abnormal at rest and with exercise,suggest nuc ett.
--- NOTE | 2017-06-23 16:16 | RADRPT ---
EXAM DATE/TIME: 06/23/2017 14:39 [facility] COMPARISON: No previous studies available for comparison. INDICATIONS : Substernal chest pain with dyspnea. Angina Abnormal excercise treamill test. DOSE: 25.4 mCi Tc99m Myoview at stress 8.4 REST HEART RATE: 83 BPM TARGET HEART RATE: 121 BPM MAX HEART RATE: 131 BPM REST BLOOD PRESSURE: 160/88 mmHg MAX BLOOD PRESSURE: 206/84 mmHg EJECTION FRACTION: 66% MEDICAL HISTORY : Hypertension. Chronic obstructive pulmonary disease. SURGICAL HISTORY : Hysterectomy. Appendectomy. Bilateral hip replacement, left lower lobectomy and left elbow repair. ENCOUNTER: Initial ACUITY: 2 days PAIN SCALE: 7/10 LOCATION: Substernal chest TECHNIQUE: The patient underwent upright treadmill exercise in the chest pain center. Continuous ECG tracing wa s monitored during stress. Gated SPECT imaging was performed after stress, and conventional SPECT im aging was performed at rest. The examination was performed on a SPECT/CT scanner, both attenuation-c orrected and non-corrected datasets were reviewed. FINDINGS: DISTRIBUTION: The maximum perfused segment at stress is in the posterobasal wall. PERFUSION STUDY: The pattern of perfusion at stress is within normal limits. GATED STUDY: There is intact wall motion and thickening without hypokinetic or dyskinetic segments. CONCLUSION: Normal examination. RISK CATEGORY: Low (<1% Annual Mortality Rate) Jose Vo MD on June 23, 2017 at 16:11 Board Certified Radiologist. This report was verified electronically.
[2017-06-23] MEDS ORDERED: OMEP20TA PO (17:05)
--- NOTE | 2017-06-23 17:06 | HHI.DCPOC ---
Discharge Care Plan Diagnosis: (1) Atypical chest pain (2) GERD (gastroesophageal reflux disease) Goals to Promote Your Health * To prevent worsening of your condition and complications * To maintain your health at the optimal level Directions to Meet Your Goals Take your medications as prescribed Follow your dietary instruction Follow activity as directed Keep your appointments as scheduled Take your immunizations and boosters as scheduled If your symptoms worsen call your PCP, if no PCP go to Urgent Care Center or Emergency Room Smoking is Dangerous to Your Health. Avoid second hand smoke Call the 24-hour hour crisis hotline for domestic abuse at Kathleen Gonzalez Jun 23, 2017 17:05
--- NOTE | 2017-06-25 07:24 | TR ---
Date Performed: 06/23/2017 Time Performed: 15:19:42 DOCTOR: Iliana Devine DRUG LIST: CLINICAL HISTORY: CHEST PAIN CHEST PAIN REASON FOR TEST: Chest pain REASON FOR ENDING: OBSERVATION: CONCLUSION: [place] protocol completed. Stopped sec to exceeding target heart rate and leg fatigue . Maximum VM=615 Target HR Achieved=92.0% Maximum WN=392/88. No reprod chest discomfort. Freq PVC. Di ffuse T waves changes prior to starting exam. Hypertenisve bp response. Fair exercise tolerance. Shabbir very quick and unremarkable. Nuclear images pending. COMMENTS:
== END 2017-06-23 18:08 | disposition home or self-care (01) ==
LOC: NEPE 15:32 → NEDA 17:43 → NEPFCDU 20:23
DX: R07.89 Other chest pain (principal); K21.9 Gastro-esophageal reflux disease without esophagitis; J44.9 Chronic obstructive pulmonary disease, unspecified; I10 Essential (primary) hypertension; R94.31 Abnormal electrocardiogram [ECG] [EKG]; E78.5 Hyperlipidemia, unspecified; J98.11 Atelectasis; Z85.820 Personal history of malignant melanoma of skin; Z96.643 Presence of artificial hip joint, bilateral
CPT/HCPCS: 71010; 78452; 80053; 82550; 82552; 83690; 83735; 84484; 85025; 85610; 85730; 93005; 93017; 94640; 94664; 96374; 96375; 99285; A9502; C9113; G0378; J2270; J7613

== ENCOUNTER → 2017-11-04 | Outpatient (CLI) | payer MEDICARE, BC ==
[~2017-11-04] MED LIST changes: -ASPI81CH37 CHEW; -CEPH-460 PO; -ENOX30P SQ; +HUMIBIDDM PO; -HYDR-3288 PO; -LEVA500T20 PO; -MUCI30TA2 PO; +OMEP20TA93 PO
--- NOTE | 2017-11-05 09:07 | RSPPFT ---
DATE OF PROCEDURE: 11/04/17 COMMENTS: VOLUMES DYNAMIC: FVC and FEV1 mildly reduced. STATIC: TLC, RV and FRC normal. FLOWS: FEV1% moderately reduced; FEF 25-75 severely reduced. DIFFUSION: Moderately reduced. FLOW VOLUME LOOP: Pattern of variable intrathoracic airways obstruction. IMPRESSION: Moderate obstructive ventilatory defect with a moderate reduction in diffusion. Airways resistance is increased. There is minimal change post-bronchodilator.
== END ==
LOC: HRSP 11:48
PROVIDERS: ATTEND Internal Medicine
DX: J44.9 Chronic obstructive pulmonary disease, unspecified (principal)
CPT/HCPCS: 94060; 94618; 94726; 94729